=== PATIENT | female | born 1940 | race Caucasian/White ===

== ENCOUNTER 2017-02-10 13:14 | Observation (INO) ==
[2017-02-10 15:54] LABS: INR 1.1
[2017-02-10 15:57] LABS: Activated Partial Thrombo Time 27.4 Seconds (26.0-36.0)
[2017-02-10 15:57] LABS: Eosinophils # 0.2 K/mcL (0.0-0.6); Eosinophils % 2.5 %; Hematocrit 17.4 % (35.3-44.9); Immature Granulocytes % 0.4 % (0-4); Lymphocytes % 24.9 %; Mean Corpuscular Hemoglobin 17.4 pg (28.0-33.3); Mean Corpuscular Volume 64.4 fL (83.0-100.0); Mean Platelet Volume 9.4 fL (9.4-12.4); Monocytes # 0.8 K/mcL (0.0-1.3); Monocytes % 9.8 %; Neutrophils # 5.1 K/mcL (1.6-8.9); Platelet Count 367 K/mcL (140-400); Red Cell Distribution Width 19.4 % (11.5-14.5); Segmented Neutrophils % 62.4 %
--- NOTE | 2017-02-10 15:58 | Emergency Department Note ---
Disposition Clinical Impression: Anemia Qualifiers: Anemia type: unspecified type Qualified Code(s): D64.9 - Anemia, unspecified Disposition: Admitted As Inpatient Condition: Good Time of Disposition: 16:30 General Adult HPI - General Chief complaint: ED Extremity Injury, Lower Stated complaint: LEG PAIN/FATIGUE Time Seen by Provider: 02/10/17 15:18 Source: patient Mode of arrival: ambulatory Limitations: no limitations Nursing Notes Reviewed: Yes Vital Signs Reviewed: Yes - History of Present Illness HPI Narrative: Ms. Lindsey is a 76-year-old female that presents to the emergency department with concerns of shortness of breath. Breath has been ongoing for the past 3-4 months and progressively getting worse. She states that she has difficulty ambulating a long distance without becoming significantly short of breath. She states that when she walks from her bedroom to her kitchen she becomes short of breath. She states that her shortness of breath is 10/10. The only thing that makes this worse is walking. She says nothing seems to make it better. She states that at night she has to sleep somewhat propped up and on her side otherwise she become short of breath. Pain Scale: 0 - Related Data Allergies Allergy/AdvReac Type Severity Reaction Status Date / Time No Known Allergies Allergy Verified 02/10/17 13:33 All systems ED: reviewed and negative except as stated. Constitutional: Denies: fever, weakness ENT ED: Denies: throat pain Cardiovascular: Reports: chest pain, dyspnea on exertion, orthopnea. Denies: palpitations, syncope Respiratory: Reports: cough, dyspnea. Denies: wheezes, hemoptysis, stridor Past Medical History - Past Medical History Attestation: Yes The following information was validated with the patient. Source: patient, obtained from family Medical history: Reports: CVA, diabetes, hyperlipidemia, hypertension, myocardial infarction Psychiatric history: Reports: anxiety, depression VISITOR SERVICES SPECIALIST history: Reports: bilateral tubal ligation - Social History Smoking Status: Current every day smoker (Half pack per day) Smokeless Tobacco Status: No Alcohol use: Reports: occasionally Drug use: Reports: none Physical Exam - General Limitations: no limitations General appearance: alert, in no apparent distress - Head Head exam: atraumatic, normocephalic - Eye Eye exam: Present: PERRL, EOMI - Neck Neck exam: Present: trachea midline, other (Scar on anterior neck from previous operation.). Absent: thyromegaly - Chest Chest inspection: Present: normal inspection, symmetric chest wall rise - Respiratory Respiratory exam: Present: normal lung sounds bilaterally. Absent: respiratory distress, wheezes, stridor, accessory muscle use - Cardiovascular Cardiovascular exam: Present: regular rate, normal rhythm, systolic murmur, +S1 , +S2 - Abdominal Exam Abdominal exam: Present: soft, Non-Tender, normal bowel sounds. Absent: organomegaly - Rectal Exam Fur Stretcher present during exam: Yes Rectal exam: Present: normal inspection, normal rectal tone, heme (-) stool, other (Empty rectal vault heme negative) - Extremities Exam Extremities exam: Present: normal inspection. Absent: tenderness, pedal edema - Neurological Exam Neurological exam: Present: alert, oriented X3, normal gait - Psychiatric Psychiatric exam: Present: normal affect, normal mood - Skin Skin exam: Present: warm, dry, intact Course Vital Signs Temperature 98.2 F 02/10/17 13:33 Pulse Rate 84 02/10/17 13:33 Respiratory Rate 16 02/10/17 13:33 Blood Pressure 126/56 02/10/17 13:33 O2 Sat by Pulse Oximetry 97 02/10/17 13:33 Temperature 98.2 F 02/10/17 13:33 Pulse Rate 91 02/10/17 16:51 Respiratory Rate 18 02/10/17 17:15 Blood Pressure 132/54 02/10/17 17:15 O2 Sat by Pulse Oximetry 96 02/10/17 18:37 Oxygen Delivery Oxygen Delivery Room Air Medical Decision Making - [facility] Narrative Medical decision making narrative: 76-year-old female that came to the ED for shortness of breath that has progressively gotten worse over the past 3 months. Was found to have a hemoglobin of 4.7 and decided to transfuse her with 2 units of packed red blood cells. I spoke with the hospitalist and decided to admit the patient. The hospitalist requested that we order iron studies which was done. The low hemoglobin is consistent with the patient's fatigue and shortness of breath. The patient will be admitted and transfused. - Medical Records Medical records reviewed: Yes I reviewed the patient's medical records. - Lab Data Lab results reviewed: Yes I reviewed the patient's lab results. Result diagrams: 02/10/17 15:39 02/10/17 15:39 Lab Results 02/10/17 02/10/17 02/10/17 Range/Units 15:39 15:39 15:39 WBC 8.1 (4.3-11.1) K/mcL RBC 2.70 L (3.82-4.97) M/mcL Hgb 4.7 L* (11.5-15.4) g/dL Hct 17.4 L (35.3-44.9) % MCV 64.4 L (83.0-100.0) fL MCH 17.4 L (28.0-33.3) pg MCHC 27.0 L (31.6-35.5) g/dL RDW 19.4 H (11.5-14.5) % Plt Count 367 (140-400) K/mcL MPV 9.4 (9.4-12.4) fL Immature Gran % 0.4 (0-4) % Seg Neutrophils % 62.4 % Lymphocytes % 24.9 % Monocytes % 9.8 % Eosinophils % 2.5 % Basophils % 0.0 % Neutrophils # 5.1 (1.6-8.9) K/mcL Lymphocytes # 2.0 (0.6-4.6) K/mcL Monocytes # 0.8 (0.0-1.3) K/mcL Eosinophils # 0.2 (0.0-0.6) K/mcL Basophils # 0.0 (0.0-0.2) K/mcL Platelet Estimate Normal (Normal) Polychromasia 1+ A (Not Present) Hypochromasia Present A (Not Present) Poikilocytosis 1+ A (Not Present) Anisocytosis 3+ A (Not Present) Microcytosis Present A (Not Present) PT (9.4-12.1) Seconds INR APTT (26.0-36.0) Seconds Sodium 137 (136-145) mEq/L Potassium 4.4 (3.5-4.5) mEq/L Chloride 106 (98-109) mEq/L Carbon Dioxide 22 (19-29) mEq/L BUN 14 (7-20) mg/dL Creatinine 1.15 H (0.57-1.11) mg/dL Est GFR ( Amer) 56 L (> 60) Est GFR (Non-Af Amer) 46 L (> 60) BUN/Creatinine Ratio 12 (6-26) Glucose 206 H (70-99) mg/dL Calculated Osmolality 290 (280-300) Calcium 9.2 (8.6-10.8) mg/dL Iron 11 L (50-170) mcg/dL % Saturation 2 L (15-50) % Transferrin 390 H (180-382) mg/dL Total Bilirubin 0.2 (0.2-1.2) mg/dL Direct Bilirubin (0.0-0.5) mg/dL Indirect Bilirubin (0.0-1.2) mg/dL AST 16 (5-34) Units/L ALT 10 (0-55) Units/L Alkaline Phosphatase 62 (38-126) Units/L Troponin I 0.01 (0-0.03) ng/mL B-Natriuretic Peptide (0-100) pg/mL Serum Total Protein 6.7 (6.0-8.3) g/dL Albumin 3.7 (3.5-5.0) g/dL Globulin 3.0 (2.4-3.5) g/dL Albumin/Globulin Ratio 1.2 (1.1-2.2) Amylase (25-125) Units/L Lipase (8-78) Units/L TSH 0.866 (0.350-4.840) mcIU/mL Blood Type Antibody Screen Crossmatch 02/10/17 02/10/17 02/10/17 Range/Units 15:39 15:39 15:40 WBC (4.3-11.1) K/mcL RBC (3.82-4.97) M/mcL Hgb (11.5-15.4) g/dL Hct (35.3-44.9) % MCV (83.0-100.0) fL MCH (28.0-33.3) pg MCHC (31.6-35.5) g/dL RDW (11.5-14.5) % Plt Count (140-400) K/mcL MPV (9.4-12.4) fL Immature Gran % (0-4) % Seg Neutrophils % % Lymphocytes % % Monocytes % % Eosinophils % % Basophils % % Neutrophils # (1.6-8.9) K/mcL Lymphocytes # (0.6-4.6) K/mcL Monocytes # (0.0-1.3) K/mcL Eosinophils # (0.0-0.6) K/mcL Basophils # (0.0-0.2) K/mcL Platelet Estimate (Normal) Polychromasia (Not Present) Hypochromasia (Not Present) Poikilocytosis (Not Present) Anisocytosis (Not Present) Microcytosis (Not Present) PT 12.0 (9.4-12.1) Seconds INR 1.1 APTT 27.4 (26.0-36.0) Seconds Sodium (136-145) mEq/L Potassium (3.5-4.5) mEq/L Chloride (98-109) mEq/L Carbon Dioxide (19-29) mEq/L BUN (7-20) mg/dL Creatinine (0.57-1.11) mg/dL Est GFR ( Amer) (> 60) Est GFR (Non-Af Amer) (> 60) BUN/Creatinine Ratio (6-26) Glucose (70-99) mg/dL Calculated Osmolality (280-300) Calcium (8.6-10.8) mg/dL Iron (50-170) mcg/dL % Saturation (15-50) % Transferrin (180-382) mg/dL Total Bilirubin 0.2 (0.2-1.2) mg/dL Direct Bilirubin 0.1 (0.0-0.5) mg/dL Indirect Bilirubin 0.1 (0.0-1.2) mg/dL AST 16 (5-34) Units/L ALT 11 (0-55) Units/L Alkaline Phosphatase 60 (38-126) Units/L Troponin I (0-0.03) ng/mL B-Natriuretic Peptide 169 H (0-100) pg/mL Serum Total Protein 6.6 (6.0-8.3) g/dL Albumin 3.7 (3.5-5.0) g/dL Globulin 2.9 (2.4-3.5) g/dL Albumin/Globulin Ratio 1.3 (1.1-2.2) Amylase 65 (25-125) Units/L Lipase 66 (8-78) Units/L TSH (0.350-4.840) mcIU/mL Blood Type Antibody Screen Crossmatch 02/10/17 Range/Units 16:33 WBC (4.3-11.1) K/mcL RBC (3.82-4.97) M/mcL Hgb (11.5-15.4) g/dL Hct (35.3-44.9) % MCV (83.0-100.0) fL MCH (28.0-33.3) pg MCHC (31.6-35.5) g/dL RDW (11.5-14.5) % Plt Count (140-400) K/mcL MPV (9.4-12.4) fL Immature Gran % (0-4) % Seg Neutrophils % % Lymphocytes % % Monocytes % % Eosinophils % % Basophils % % Neutrophils # (1.6-8.9) K/mcL Lymphocytes # (0.6-4.6) K/mcL Monocytes # (0.0-1.3) K/mcL Eosinophils # (0.0-0.6) K/mcL Basophils # (0.0-0.2) K/mcL Platelet Estimate (Normal) Polychromasia (Not Present) Hypochromasia (Not Present) Poikilocytosis (Not Present) Anisocytosis (Not Present) Microcytosis (Not Present) PT (9.4-12.1) Seconds INR APTT (26.0-36.0) Seconds Sodium (136-145) mEq/L Potassium (3.5-4.5) mEq/L Chloride (98-109) mEq/L Carbon Dioxide (19-29) mEq/L BUN (7-20) mg/dL Creatinine (0.57-1.11) mg/dL Est GFR ( Amer) (> 60) Est GFR (Non-Af Amer) (> 60) BUN/Creatinine Ratio (6-26) Glucose (70-99) mg/dL Calculated Osmolality (280-300) Calcium (8.6-10.8) mg/dL Iron (50-170) mcg/dL % Saturation (15-50) % Transferrin (180-382) mg/dL Total Bilirubin (0.2-1.2) mg/dL Direct Bilirubin (0.0-0.5) mg/dL Indirect Bilirubin (0.0-1.2) mg/dL AST (5-34) Units/L ALT (0-55) Units/L Alkaline Phosphatase (38-126) Units/L Troponin I (0-0.03) ng/mL B-Natriuretic Peptide (0-100) pg/mL Serum Total Protein (6.0-8.3) g/dL Albumin (3.5-5.0) g/dL Globulin (2.4-3.5) g/dL Albumin/Globulin Ratio (1.1-2.2) Amylase (25-125) Units/L Lipase (8-78) Units/L TSH (0.350-4.840) mcIU/mL Blood Type O NEGATIVE Antibody Screen NEGATIVE Crossmatch See Detail - Radiology Data Radiology results reviewed: Yes I reviewed the patient's radiology results. - EKG Data EKG #1 EKG results narrative: EKG showed normal sinus rhythm at a rate of 84 bpm NE interval is 176 QRS duration 86 QTc is 381. Normal axis. No ST segment changes. No acute findings Attestation Statement - Attestation Attestation: I, Luis Carson, examined this patient and my medical decision-making was reviewed with the TECHNICAL REPORT WRITER/PA/Advanced Practice Nurse/Resident Physician. I agree with the documented findings, disposition and treatment plan as described except to the extent set forth below. 76-year-old female presents with concerns of increasing shortness of breath. Patient states that this has been worsening over the past 2-3 months. Patient states she becomes significantly dyspneic with minimal exertion going from room to room in the house. Reports history of chest pain and shortness of breath intermittently over the past few months, last time she had these symptoms was about 3 days prior to arrival. On initial evaluation the patient is awake, alert, answering questions appropriately. She is up moving around the room without difficulty. Initial laboratory testing revealed hemoglobin of 4.7. Resident performed a rectal exam which did not reveal stool in the rectal vault however the little that was obtained was guaiac negative. Patient states she had one episode of dark brown loose stool this morning. She has had these intermittently over the past 2-3 months. Patient vital signs are stable in the emergency department. The resident spoke with the endoscopist, Dr. Haq who felt like the patient was capable of being managed at this hospital. Patient will be admitted to the hospitalist for further care and evaluation.
[2017-02-10 16:10] LABS: Albumin 3.7 g/dL (3.5-5.0); Albumin/Globulin Ratio 1.2 (1.1-2.2); Albumin/Globulin Ratio 1.3 (1.1-2.2); Bilirubin,Direct 0.1 mg/dL (0.0-0.5); Bilirubin,Indirect 0.1 mg/dL (0.0-1.2); Bilirubin,Total 0.2 mg/dL (0.2-1.2); Calcium 9.2 mg/dL (8.6-10.8); Globulin 2.9 g/dL (2.4-3.5); Potassium 4.4 mEq/L (3.5-4.5); Total Protein 6.6 g/dL (6.0-8.3); Total Protein 6.7 g/dL (6.0-8.3)
[2017-02-10 16:14] LABS: Hemoglobin 4.7 g/dL (11.5-15.4)
[2017-02-10 16:19] LABS: Hypochromasia Present (Not Present); Microcytosis Present (Not Present)
[2017-02-10 16:20] LABS: Anisocytosis 3+ (Not Present); Poikilocytosis 1+ (Not Present)
[2017-02-10 16:21] LABS: Platelet Estimate Normal (Normal); Polychromasia 1+ (Not Present)
[2017-02-10 16:33] LABS: Thyroid Stimulating Hormone 0.866 mcIU/mL (0.350-4.840)
[2017-02-10] MEDS ORDERED: Naloxone 0.4 MG/ML INJ IVP PRN (18:01)
--- NOTE | 2017-02-10 18:01 | Emergency Department Note ---
Disposition Clinical Impression: Anemia Qualifiers: Anemia type: unspecified type Qualified Code(s): D64.9 - Anemia, unspecified Disposition: Admitted As Inpatient Condition: Good Time of Disposition: 18:01 General Adult HPI - General Chief complaint: ED Extremity Injury, Lower Stated complaint: LEG PAIN/FATIGUE Time Seen by Provider: 02/10/17 15:18 Source: patient Mode of arrival: ambulatory Limitations: no limitations - History of Present Illness Pain Scale: 0 - Related Data Allergies Allergy/AdvReac Type Severity Reaction Status Date / Time No Known Allergies Allergy Verified 02/10/17 13:33 Constitutional: Denies: fever, weakness ENT ED: Denies: throat pain Cardiovascular: Reports: chest pain, dyspnea on exertion, orthopnea. Denies: palpitations, syncope Respiratory: Reports: cough, dyspnea. Denies: wheezes, hemoptysis, stridor Past Medical History - Past Medical History Medical history: Reports: CVA, diabetes, hyperlipidemia, hypertension, myocardial infarction Psychiatric history: Reports: anxiety, depression QA TECH history: Reports: bilateral tubal ligation - Social History Smoking Status: Current every day smoker (Half pack per day) Smokeless Tobacco Status: No Alcohol use: Reports: occasionally Drug use: Reports: none Physical Exam - General Limitations: no limitations General appearance: alert, in no apparent distress Course - Reevaluation(s) Reevaluation #1: I spoke with the admitting hospitalist. They were concerned if the patient needed endoscopy or colonoscopy that we do not have GI on-call for the next 5 days. Paged the on-call surgeon, Dr. Ahmadi. He agreed that the patient is hemodynamically stable currently. Recommended continuing with planned transfusion. He will scope the patient as an outpatient or he was agreeable to coming in to scope her emergently if needed. Patient is certainly not actively bleeding at this point. I do not anticipate her needing an emergent scope. She has had 2 episodes of loose dark stools in the last 24 hours. She did not describe anything that was black, tarry, or oily. Rectal exam showed no rectal stool. Hemoccult was negative. We will admit her for transfusion and further management as needed. Time: 17:59 Vital Signs Temperature 98.2 F 02/10/17 13:33 Pulse Rate 84 02/10/17 13:33 Respiratory Rate 16 02/10/17 13:33 Blood Pressure 126/56 02/10/17 13:33 O2 Sat by Pulse Oximetry 97 02/10/17 13:33 Temperature 98.4 F 02/10/17 18:50 Pulse Rate 86 02/10/17 18:50 Respiratory Rate 14 02/10/17 18:50 Blood Pressure 155/63 02/10/17 18:50 O2 Sat by Pulse Oximetry 94 02/10/17 18:50 Oxygen Delivery Oxygen Delivery Room Air Medical Decision Making - Lab Data Result diagrams: 02/10/17 15:39 02/10/17 15:39 Lab Results 02/10/17 02/10/17 02/10/17 Range/Units 15:39 15:39 15:39 WBC 8.1 (4.3-11.1) K/mcL RBC 2.70 L (3.82-4.97) M/mcL Hgb 4.7 L* (11.5-15.4) g/dL Hct 17.4 L (35.3-44.9) % MCV 64.4 L (83.0-100.0) fL MCH 17.4 L (28.0-33.3) pg MCHC 27.0 L (31.6-35.5) g/dL RDW 19.4 H (11.5-14.5) % Plt Count 367 (140-400) K/mcL MPV 9.4 (9.4-12.4) fL Immature Gran % 0.4 (0-4) % Seg Neutrophils % 62.4 % Lymphocytes % 24.9 % Monocytes % 9.8 % Eosinophils % 2.5 % Basophils % 0.0 % Neutrophils # 5.1 (1.6-8.9) K/mcL Lymphocytes # 2.0 (0.6-4.6) K/mcL Monocytes # 0.8 (0.0-1.3) K/mcL Eosinophils # 0.2 (0.0-0.6) K/mcL Basophils # 0.0 (0.0-0.2) K/mcL Platelet Estimate Normal (Normal) Polychromasia 1+ A (Not Present) Hypochromasia Present A (Not Present) Poikilocytosis 1+ A (Not Present) Anisocytosis 3+ A (Not Present) Microcytosis Present A (Not Present) PT (9.4-12.1) Seconds INR APTT (26.0-36.0) Seconds Sodium 137 (136-145) mEq/L Potassium 4.4 (3.5-4.5) mEq/L Chloride 106 (98-109) mEq/L Carbon Dioxide 22 (19-29) mEq/L BUN 14 (7-20) mg/dL Creatinine 1.15 H (0.57-1.11) mg/dL Est GFR ( Amer) 56 L (> 60) Est GFR (Non-Af Amer) 46 L (> 60) BUN/Creatinine Ratio 12 (6-26) Glucose 206 H (70-99) mg/dL Calculated Osmolality 290 (280-300) Calcium 9.2 (8.6-10.8) mg/dL Iron 11 L (50-170) mcg/dL % Saturation 2 L (15-50) % Transferrin 390 H (180-382) mg/dL Total Bilirubin 0.2 (0.2-1.2) mg/dL Direct Bilirubin (0.0-0.5) mg/dL Indirect Bilirubin (0.0-1.2) mg/dL AST 16 (5-34) Units/L ALT 10 (0-55) Units/L Alkaline Phosphatase 62 (38-126) Units/L Troponin I 0.01 (0-0.03) ng/mL B-Natriuretic Peptide (0-100) pg/mL Serum Total Protein 6.7 (6.0-8.3) g/dL Albumin 3.7 (3.5-5.0) g/dL Globulin 3.0 (2.4-3.5) g/dL Albumin/Globulin Ratio 1.2 (1.1-2.2) Amylase (25-125) Units/L Lipase (8-78) Units/L TSH 0.866 (0.350-4.840) mcIU/mL Blood Type Antibody Screen Crossmatch 02/10/17 02/10/17 02/10/17 Range/Units 15:39 15:39 15:40 WBC (4.3-11.1) K/mcL RBC (3.82-4.97) M/mcL Hgb (11.5-15.4) g/dL Hct (35.3-44.9) % MCV (83.0-100.0) fL MCH (28.0-33.3) pg MCHC (31.6-35.5) g/dL RDW (11.5-14.5) % Plt Count (140-400) K/mcL MPV (9.4-12.4) fL Immature Gran % (0-4) % Seg Neutrophils % % Lymphocytes % % Monocytes % % Eosinophils % % Basophils % % Neutrophils # (1.6-8.9) K/mcL Lymphocytes # (0.6-4.6) K/mcL Monocytes # (0.0-1.3) K/mcL Eosinophils # (0.0-0.6) K/mcL Basophils # (0.0-0.2) K/mcL Platelet Estimate (Normal) Polychromasia (Not Present) Hypochromasia (Not Present) Poikilocytosis (Not Present) Anisocytosis (Not Present) Microcytosis (Not Present) PT 12.0 (9.4-12.1) Seconds INR 1.1 APTT 27.4 (26.0-36.0) Seconds Sodium (136-145) mEq/L Potassium (3.5-4.5) mEq/L Chloride (98-109) mEq/L Carbon Dioxide (19-29) mEq/L BUN (7-20) mg/dL Creatinine (0.57-1.11) mg/dL Est GFR ( Amer) (> 60) Est GFR (Non-Af Amer) (> 60) BUN/Creatinine Ratio (6-26) Glucose (70-99) mg/dL Calculated Osmolality (280-300) Calcium (8.6-10.8) mg/dL Iron (50-170) mcg/dL % Saturation (15-50) % Transferrin (180-382) mg/dL Total Bilirubin 0.2 (0.2-1.2) mg/dL Direct Bilirubin 0.1 (0.0-0.5) mg/dL Indirect Bilirubin 0.1 (0.0-1.2) mg/dL AST 16 (5-34) Units/L ALT 11 (0-55) Units/L Alkaline Phosphatase 60 (38-126) Units/L Troponin I (0-0.03) ng/mL B-Natriuretic Peptide 169 H (0-100) pg/mL Serum Total Protein 6.6 (6.0-8.3) g/dL Albumin 3.7 (3.5-5.0) g/dL Globulin 2.9 (2.4-3.5) g/dL Albumin/Globulin Ratio 1.3 (1.1-2.2) Amylase 65 (25-125) Units/L Lipase 66 (8-78) Units/L TSH (0.350-4.840) mcIU/mL Blood Type Antibody Screen Crossmatch 02/10/17 Range/Units 16:33 WBC (4.3-11.1) K/mcL RBC (3.82-4.97) M/mcL Hgb (11.5-15.4) g/dL Hct (35.3-44.9) % MCV (83.0-100.0) fL MCH (28.0-33.3) pg MCHC (31.6-35.5) g/dL RDW (11.5-14.5) % Plt Count (140-400) K/mcL MPV (9.4-12.4) fL Immature Gran % (0-4) % Seg Neutrophils % % Lymphocytes % % Monocytes % % Eosinophils % % Basophils % % Neutrophils # (1.6-8.9) K/mcL Lymphocytes # (0.6-4.6) K/mcL Monocytes # (0.0-1.3) K/mcL Eosinophils # (0.0-0.6) K/mcL Basophils # (0.0-0.2) K/mcL Platelet Estimate (Normal) Polychromasia (Not Present) Hypochromasia (Not Present) Poikilocytosis (Not Present) Anisocytosis (Not Present) Microcytosis (Not Present) PT (9.4-12.1) Seconds INR APTT (26.0-36.0) Seconds Sodium (136-145) mEq/L Potassium (3.5-4.5) mEq/L Chloride (98-109) mEq/L Carbon Dioxide (19-29) mEq/L BUN (7-20) mg/dL Creatinine (0.57-1.11) mg/dL Est GFR ( Amer) (> 60) Est GFR (Non-Af Amer) (> 60) BUN/Creatinine Ratio (6-26) Glucose (70-99) mg/dL Calculated Osmolality (280-300) Calcium (8.6-10.8) mg/dL Iron (50-170) mcg/dL % Saturation (15-50) % Transferrin (180-382) mg/dL Total Bilirubin (0.2-1.2) mg/dL Direct Bilirubin (0.0-0.5) mg/dL Indirect Bilirubin (0.0-1.2) mg/dL AST (5-34) Units/L ALT (0-55) Units/L Alkaline Phosphatase (38-126) Units/L Troponin I (0-0.03) ng/mL B-Natriuretic Peptide (0-100) pg/mL Serum Total Protein (6.0-8.3) g/dL Albumin (3.5-5.0) g/dL Globulin (2.4-3.5) g/dL Albumin/Globulin Ratio (1.1-2.2) Amylase (25-125) Units/L Lipase (8-78) Units/L TSH (0.350-4.840) mcIU/mL Blood Type O NEGATIVE Antibody Screen NEGATIVE Crossmatch See Detail Attestation Statement - Attestation Attestation: I, Luis Carson, examined this patient and my medical decision-making was reviewed with the ELEVATOR ERECTOR/PA/Advanced Practice Nurse/Resident Physician. I agree with the documented findings, disposition and treatment plan as described except to the extent set forth below. Refer to original note for detail.
[2017-02-10] MEDS ORDERED: 0.9 % Sodium Chloride 250 ML ONE ×2 (18:27→22:26)
--- NOTE | 2017-02-10 18:28 | Internal Med History&Physical ---
<Feliciano,Carmita J - Last Filed: 02/10/17 19:21> Date of Encounter: 02/10/17 Time of Encounter: 18:23 Assessment and Plan (1) Anemia Current visit: Yes Status: Acute Reports to loose stools with melena one day prior to admission, no hematochezia , no obvious bleeding. Hemodynamically stable, no hypotension or tachycardia. Granddaughter at bedside and reports noting bright red blood in toilet after patient voids. One unit PRBC ordered in the ED, we will order a total of [address] JASON Jarrell on this week however discussed case with the ED physician who spoke with Dr. Haq and Dr. Ahmadi agreed to scope patient if needed after transfusion otherwise can follow up outpatient. Clear liquid diet , IV fluids, IV PPI, monitor H&H Qualifiers: Anemia type: unspecified type Qualified Code(s): D64.9 - Anemia, unspecified (2) Shortness of breath Current visit: Yes Status: Acute Chronic and progressive per patient. Current smoker and likely has underlying COPD. CXR nonacute but did show small lingula of left lung. No evidence of COPD exacerbation on exam. Continue supplemental O2 PRN. Echo, chest CT pending. Cycle troponin. Add nebs (3) DVT prophylaxis Current visit: Yes Status: Acute SCD Internal Medicine - H&P: HPI Chief complaint: shortness of breath Admitted From: Home Plans for Post Hospital Care: Home History of present illness: Ms. Lindsey is a 76 year old female with unknown past medical history who presented to [facility] on 02/10/2017 with complaints of shortness of breath. She was found to have a hemoglobin of 4.7 and was admitted for blood transfusion. Information obtained from chart review and patient report. Patient reports not feeling well for a couple months now. Says she has been trying to get into her PCP but her appointments keep being rescheduled. Unclear exactly what happened or brought her to the ER today she does report being shortness of breath and not feeling well. She she thinks she may have had a heart attack 2 months ago she had sharp chest pain. No chest pain on my exam, does have some shortness of breath worse with exertion. Better with rest. Denies bright red blood per rectum. She does report 2 large loose stools over the last 24 hours dark black in color. Granddaughter at bedside and reports seeing bright red blood in the toilet after patient uses the bathroom. Past Med Surg Social Fam HX - Past Medical History Medical history: CVA, diabetes, hyperlipidemia, hypertension, myocardial infarction Psychiatric history: anxiety, depression - Past Surgical History Surgical History: non-contributory - Social History Smoking Status: Current every day smoker (Half pack per day) Smokeless Tobacco Status: No Alcohol use: occasionally Drug use: none - Additional Family History Additional family history: reviewed and noncontributory Internal Medicine - H&P: Meds Allergies No Known Allergies Allergy (Verified 02/10/17 13:33) All Systems PM: A 10-system review of systems was performed and is negative for pertinent findings except as documented above in the HPI. - Constitutional Constitutional: weakness, no chills, no fever(s), no night sweats - EENT Eyes: no change in vision, no discharge, no pain, no photophobia Ears: no ear discharge, no ear pain, no tinnitus Nose, mouth and throat: no dysphagia, no nasal discharge, no neck pain, no sore throat - Cardiovascular Cardiovascular ROS IM: no chest pain, no diaphoresis, no dyspnea, no lightheadedness, no palpitations, no syncope - Respiratory Respiratory: dyspnea on exertion, no cough, no dyspnea, no wheezing, no excessive phlegm production - Gastrointestinal Gastrointestinal: loose stools, melena, no abdominal pain, no diarrhea, no hematemesis, no hematochezia, no nausea, no vomiting - Genitourinary Genitourinary: no change in urinary stream, no dysuria, no flank pain, no hematuria - Musculoskeletal Musculoskeletal ROS IM: no numbness, no tingling - Integumentary Integumentary IM: no rash, no unusual bruising - Neurological Neurological ROS: no confusion, no convulsions, no focal weakness, no numbness, no tingling, no tremor(s) - Hematologic/Lymphatic Hematologic/Lymphatic: no easy bruising - Constitutional Vitals: Temp Pulse Resp BP Pulse Ox 98.2 F 91 18 132/54 99 02/10/17 13:33 02/10/17 16:51 02/10/17 17:15 02/10/17 17:15 02/10/17 16:51 General appearance: Present: A&O X 3 - Head Head exam: Present: atraumatic, normocephalic - Eye Eye exam: Present: PERRL, conjuntiva pink, sclera anicteric Pupils: Present: PERRL - Neck Neck exam general surgery: Present: supple, trachea midline. Absent: lymphadenopathy - Respiratory Respiratory exam: Present: CTAB. Absent: accessory muscle use, rales, rhonchi, wheezes - Cardiovascular Cardiovascular exam: Present: RRR, +S1, +S2. Absent: diastolic murmur, gallop, rubs, systolic murmur - GI/Abdominal GI/Abdominal exam: Present: normal bowel sounds, soft, no peritoneal signs. Absent: distended, tenderness - Extremities Exam Extremities exam: Present: warm, radial pulses palpable and symetrical. Absent : calf tenderness, cyanotic, pedal edema - Neurological Exam Neurological exam: Present: CN II-XII intact, oriented X3, no focal deficits. Absent: pronater drift, facial droop, speech deficit - Skin Skin exam: Present: dry, intact Internal Med - H&P Results - Labs CBC & Chem 7: 02/10/17 15:39 02/10/17 15:39 <Fausto Juarez - Last Filed: 02/11/17 07:21> Date of Encounter: 02/11/17 Internal Medicine - H&P: HPI History of present illness: Ms. Lindsey is a 76 year old female All Systems PM: A 10-system review of systems was performed and is negative for pertinent findings except as documented above in the HPI. - Constitutional Vitals: Temp Pulse Resp BP Pulse Ox 98.4 F 82 20 159/71 95 02/11/17 06:13 02/11/17 06:13 02/11/17 06:13 02/11/17 06:13 02/11/17 06:13 Internal Med - H&P Results - Labs CBC & Chem 7: 02/11/17 06:01 02/11/17 06:01 Labs: Short CBC 02/11/17 Range/Units 06:01 WBC 5.8 (4.3-11.1) K/mcL Hgb 7.5 L D (11.5-15.4) g/dL Hct 25.1 L (35.3-44.9) % Plt Count 251 (140-400) K/mcL BMP 02/11/17 06:01 Sodium 137 Potassium 3.9 Chloride 112 H Carbon Dioxide 19 BUN 10 Creatinine 0.80 Glucose 61 L Calcium 8.1 L Cardiac Enzymes 02/11/17 02/11/17 Range/Units 01:17 06:01 Troponin I 0.01 0.00 (0-0.03) ng/mL Liver Function 02/11/17 Range/Units 06:01 Total Bilirubin 0.9 D (0.2-1.2) mg/dL AST 18 (5-34) Units/L ALT 11 (0-55) Units/L Alkaline Phosphatase 45 (38-126) Units/L Albumin 3.0 L (3.5-5.0) g/dL - Attending Attestation I examined this patient and my medical decision-making was reviewed with the Resident Physician. I agree with the documented findings, disposition and treatment plan as described
[2017-02-10] MEDS: Nicotine 14 MG PATCH.TD24 TD SCH (20:52)
[2017-02-10] MEDS: Pantoprazole 40 MG VIAL IVP SCH (20:53)
[2017-02-11] MEDS: 0.9 % Sodium Chloride 1,000 ML IVC SCH ×3 (00:14→23:52)
[2017-02-11] MEDS ORDERED: 0.9 % Sodium Chloride 250 ML ONE (01:51)
[2017-02-11 06:42] LABS: Basophils # 0.1 K/mcL (0.0-0.2); Basophils % 0.9 %; Eosinophils # 0.2 K/mcL (0.0-0.6); Eosinophils % 2.8 %; Hematocrit 25.1 % (35.3-44.9); Immature Granulocytes % 1.6 % (0-4); Lymphocytes # 1.5 K/mcL (0.6-4.6); Mean Corpuscular HGB Conc 29.9 g/dL (31.6-35.5); Mean Corpuscular Hemoglobin 22.1 pg (28.0-33.3); Mean Platelet Volume 8.6 fL (9.4-12.4); Monocytes # 0.7 K/mcL (0.0-1.3); Monocytes % 12.4 %; Neutrophils # 3.3 K/mcL (1.6-8.9); Nucleated Red Blood Cells 0.5 /100 WBC (0); Platelet Count 251 K/mcL (140-400); Red Cell Distribution Width 26.3 % (11.5-14.5); Segmented Neutrophils % 56.3 %
[2017-02-11 06:52] LABS: Hemoglobin 7.5 g/dL (11.5-15.4); Mean Corpuscular Volume 73.8 fL (83.0-100.0)
[2017-02-11 06:56] LABS: % Iron Saturation 13 % (15-50); Alanine Aminotransferase 11 Units/L (0-55); Albumin/Globulin Ratio 1.3 (1.1-2.2); Alkaline Phosphatase 45 Units/L (38-126); Aspartate Amino Transferase 18 Units/L (5-34); BUN/Creatinine Ratio 13 (6-26); Blood Urea Nitrogen 10 mg/dL (7-20); Calcium 8.1 mg/dL (8.6-10.8); Carbon Dioxide 19 mEq/L (19-29); Chloride 112 mEq/L (98-109); Globulin 2.3 g/dL (2.4-3.5); Glucose 61 mg/dL (70-99); Iron 57 mcg/dL (50-170); Lactate Dehydrogenase 179 Units/L (159-327); Osmolality,Calculated 281 (280-300); Potassium 3.9 mEq/L (3.5-4.5); Sodium 137 mEq/L (136-145); Transferrin 313 mg/dL (180-382); eGFR For African Americans > 60 (> 60); eGFR For Non-African Americans > 60 (> 60)
[2017-02-11 07:00] LABS: Bilirubin,Total 0.9 mg/dL (0.2-1.2); Total Protein 5.3 g/dL (6.0-8.3)
[2017-02-11 07:30] LABS: Folate 15.2 ng/mL (7.0-31.4)
[2017-02-11 07:50] LABS: Anisocytosis 2+ (Not Present); Hypochromasia Present (Not Present); Microcytosis Present (Not Present); Platelet Estimate Normal (Normal)
[2017-02-11] MEDS: Pantoprazole 40 MG VIAL IVP SCH (08:27)
[2017-02-11] MEDS: Nicotine 14 MG PATCH.TD24 TD SCH (08:28)
--- NOTE | 2017-02-11 10:47 | Internal Med Progress Note ---
<Boris Ramirez - Last Filed: 02/11/17 10:55> Date of Encounter: 02/11/17 Time of Encounter: 08:30 - Assessment and plan (1) DVT prophylaxis Current Visit: Yes Status: Acute (2) Shortness of breath Current Visit: Yes Status: Acute Assessment and plan: Checks x-ray revealed no acute changes. Patient still has a mild, nonproductive cough and expiratory wheezes on physical exam. Vital signs are currently stable. Continue to monitor. Chest CT pending. (3) Anemia Current Visit: Yes Status: Acute Assessment and plan: Patient reports having dark colored stools for the last month. She describes her stools as dark or black in color. Has attempted to see primary care physician, but either gets cancelled or is unable to obtain an appointment. Patient has received a total of 3 units of packed red blood cells. Vital signs are currently stable. Hemoglobin has increased from 4.7 on admission to 7.5. Granddaughter at bedside reports seeing bright red blood in the toilet after the patient uses the bathroom. We will contact Dr. Puga for an EGD to determine source of bleeding. Qualifiers: Anemia type: iron deficiency Iron deficiency anemia type: unspecified iron deficiency Qualified Code(s): D50.9 - Iron deficiency anemia, unspecified - Time Spent With Patient SCD. - Subjective Interval history: Patient was seen and examined at bedside this morning. Patient states that her shortness of breath has slightly improved since admission. She admits that she has a slight cough, which is nonproductive. Her main complaint this morning is pain and weakness in her legs. She says that this pain has been going on for the last month, and impairs her ability to walk long distances. Patient also states that her stools have been dark for the last month or so. Patient also states that she has been having intermittent chest pains this morning in the lower sternal area. She currently denies any nausea, vomiting, palpitations, or respiratory distress. - Constitutional Vitals: Temp Pulse Resp BP Pulse Ox 97.7 F 79 18 177/77 96 02/11/17 08:18 02/11/17 08:18 02/11/17 08:18 02/11/17 08:18 02/11/17 08:28 General appearance: Present: A&O X 3, no acute distress, answers questions appropriately - Respiratory Respiratory exam: Present: wheezes (Expiratory wheezes present.) - Expanded Respiratory Exam Location: wheezes: Left, Right, Upper, Lower (Expiratory wheezes present bilaterally.) - Cardiovascular Cardiovascular exam: Present: RRR, +S1, +S2. Absent: diastolic murmur, gallop, rubs, systolic murmur Internal Medicine: Result - Labs CBC & Chem 7: 02/11/17 06:01 02/11/17 06:01 Labs: Short CBC 02/11/17 Range/Units 06:01 WBC 5.8 (4.3-11.1) K/mcL Hgb 7.5 L D (11.5-15.4) g/dL Hct 25.1 L (35.3-44.9) % Plt Count 251 (140-400) K/mcL Neutrophils # 3.3 (1.6-8.9) K/mcL BMP 02/11/17 06:01 Sodium 137 Potassium 3.9 Chloride 112 H Carbon Dioxide 19 BUN 10 Creatinine 0.80 Glucose 61 L Calcium 8.1 L Cardiac Enzymes 02/11/17 02/11/17 Range/Units 01:17 06:01 Troponin I 0.01 0.00 (0-0.03) ng/mL Liver Function 02/11/17 Range/Units 06:01 Total Bilirubin 0.9 D (0.2-1.2) mg/dL AST 18 (5-34) Units/L ALT 11 (0-55) Units/L Alkaline Phosphatase 45 (38-126) Units/L Albumin 3.0 L (3.5-5.0) g/dL - ABG Interpretation ABG results: PT/INR, D-dimer PT 12.0 Seconds (9.4-12.1) 02/10/17 15:40 Consult Discharge Plan - Plan Referrals: Anneliese Melchor, [facility] [Primary Care Provider] - 02/17/17 1:15 pm <Omer Daly - Last Filed: 02/11/17 18:06> Date of Encounter: 02/11/17 - Assessment and plan (1) Anemia Current Visit: Yes Status: Acute Qualifiers: Anemia type: iron deficiency Iron deficiency anemia type: chronic blood loss Qualified Code(s): D50.0 - Iron deficiency anemia secondary to blood loss (chronic) (2) Acute upper gastrointestinal hemorrhage Current Visit: Yes Status: Suspected Assessment and plan: Surgery eval today and scope on Wednesday. (3) Shortness of breath Current Visit: Yes Status: Acute (4) Hypertension Current Visit: Yes Status: Chronic Qualifiers: Hypertension type: essential hypertension Qualified Code(s): I10 - Essential (primary) hypertension (5) Tobacco abuse Current Visit: Yes Status: Acute Assessment and plan: Cessation counselling. (6) Infestation by bed bug Current Visit: Yes Status: Acute Assessment and plan: Bed bugs - Constitutional Vitals: Temp Pulse Resp BP Pulse Ox 98.4 F 91 20 162/83 93 02/11/17 16:36 02/11/17 16:36 02/11/17 16:36 02/11/17 16:36 02/11/17 16:36 Internal Medicine: Result - Labs CBC & Chem 7: 02/11/17 06:01 02/11/17 06:01 Labs: Short CBC 02/11/17 Range/Units 06:01 WBC 5.8 (4.3-11.1) K/mcL Hgb 7.5 L D (11.5-15.4) g/dL Hct 25.1 L (35.3-44.9) % Plt Count 251 (140-400) K/mcL Neutrophils # 3.3 (1.6-8.9) K/mcL BMP 02/11/17 06:01 Sodium 137 Potassium 3.9 Chloride 112 H Carbon Dioxide 19 BUN 10 Creatinine 0.80 Glucose 61 L Calcium 8.1 L Cardiac Enzymes 02/11/17 02/11/17 02/11/17 Range/Units 01:17 06:01 12:19 Troponin I 0.01 0.00 0.00 (0-0.03) ng/mL Liver Function 02/11/17 Range/Units 06:01 Total Bilirubin 0.9 D (0.2-1.2) mg/dL AST 18 (5-34) Units/L ALT 11 (0-55) Units/L Alkaline Phosphatase 45 (38-126) Units/L Albumin 3.0 L (3.5-5.0) g/dL - ABG Interpretation ABG results: PT/INR, D-dimer PT 12.0 Seconds (9.4-12.1) 02/10/17 15:40 - Attending Attestation I examined this patient and my medical decision-making was reviewed with the Resident Physician on 02/11/17. I agree with the documented findings, disposition and treatment plan as described except to the extent set forth below. Ms. Lindsey is currently admitted for acute GI bleed and anemia of acute blood loss with dyspnea and CP. She is high risk due to potential for worsening bleeding status. Ms. Lindsey has no complaints. She was smoking in her room last night. Has bed bugs. No fever or chills. Exam Alert. Comfortable Heart reg No wheeze I/P 1. Anemia 2. GI bleed Further diagnoses and plan as above.
--- NOTE | 2017-02-11 11:52 | Electrocardiograph Report ---
[address] [address] Test Date: 2017-02-10 Pat Name: Lacy Lindsey Department: 102 Room: 2A38 Gender: F [employer]visor [employer]: Am : 1940 Requested By: Saul Larios Order Number: [id number] Reading MD: Edouard Borges MD Measurements Intervals [place] Rate: 84 P: 58 KS: 176 QRS: 43 QRSD: 86 T: 51 QT: 340 QTc: 381 Interpretive Statements SINUS RHYTHM Electronically Signed On 02-11-2017 11:50:49 EDT by Edouard Borges MD
--- NOTE | 2017-02-11 16:54 | General Surgery Consult Note ---
<Prince GeorgeGlenna Tamara - Last Filed: 02/11/17 17:01> Date of Encounter: 02/11/17 Time of Encounter: 16:30 Assessment and Plan (1) Acute blood loss anemia Current Visit: Yes Status: Acute Will plan to continue to support with PRBC and hydration Plan to start bowel prep with Miralax and Gatorade 02/12/17 if medically stable Clear liquids starting 02/12/17 Likely plan for EGD/Colonoscopy on 02/13/17 with general surgery History of Present Illness Consult date: 02/11/17 Requesting physician: Mart Conti History of present illness: Ms. Lindsey is a 76 year old female who presented to the hospital with complaints of dark tarry stools and progressive weakness for the past 3 weeks. She states that she has had at least 1-2 loose, dark colored stools per day for the past 3 weeks. Admits to generalized abdominal discomfort. Admits to nausea but denies any vomiting. Denies any fevers or chills. Admits to shortness of breath, chest pains, dizziness and progressive weakness. Denies any syncopal episodes. Denies any weight loss. She has never had upper or lower endoscopy evaluation. Her Hgb was 4.7 on initial presentation and she is feeling much better after receiving her 4th unit of PRBC. We have been asked to see and evaluate her for endoscopic evaluation. Past Med Surg Social Fam HX - Past Medical History Source: patient, old records reviewed Medical history: CVA, diabetes, hyperlipidemia, hypertension, myocardial infarction Psychiatric history: anxiety, depression - Past Surgical History Surgical History: non-contributory - Social History Smoking Status: Current every day smoker (Half pack per day) Smokeless Tobacco Status: No Alcohol use: occasionally Drug use: none Current living situation: Home - Independent Activity Level: Independent ambulation Medications and Allergies Albuterol Sulfate [Ventolin Hfa] 2 puff IH Q4H PRN 02/11/17 [History] Carvedilol [Coreg] 25 mg PO DAILY 02/11/17 [History] Cholecalciferol (D-3) [Vitamin D] 1,000 unit PO DAILY 02/11/17 [History] Gabapentin [Neurontin] 300 mg PO BID 02/11/17 [History] Glimepiride [Amaryl] 4 mg PO DAILY 02/11/17 [History] Ibuprofen [Motrin] 600 mg PO BID PRN 02/11/17 [History] Levothyroxine [Synthroid] 25 mcg PO 0630 02/11/17 [History] Lisinopril [Zestril] 20 mg PO DAILY 02/11/17 [History] Potassium Chloride [Klor-Con M15] 15 meq PO DAILY 02/11/17 [History] Rosuvastatin [Crestor] 40 mg PO HS 02/11/17 [History] metFORMIN [Glucophage] 1,000 mg PO BIDWM 02/11/17 [History] Allergies No Known Allergies Allergy (Verified 02/10/17 13:33) Review of Systems All systems PM: reviewed and no additional remarkable complaints except as stated (in the HPI) All systems PM: A 10-system review of systems was performed and is negative for pertinent findings except as documented above in the HPI. General Surgery Exam Initial Vital Signs Temp Pulse Resp BP Pulse Ox 98.2 F 84 16 126/56 97 02/10/17 13:33 02/10/17 13:33 02/10/17 13:33 02/10/17 13:33 02/10/17 13:33 - General physical appearance well developed, well nourished, no distress - Eyes normal ocular movement - ENT normal mucosa, atraumatic, normocephalic - Neck trachea midline - Respiratory normal respiratory effort, clear to auscultation - Cardiovascular Cardiovascular exam: Present: RRR - Abdomen Abdomen general surgery: Present: bowel sounds present, soft, non tender - Integumentary Integumentary general surgery: Present: warm and dry - Neurologic Present: CN 2-12 grossly intact - Psychiatric Psychiatric general surgery: Present: appropriate, oriented to person, oriented to place, oriented to time, speech is normal, memory intact Exam Initial Vital Signs Temp Pulse Resp BP Pulse Ox 98.2 F 84 16 126/56 97 02/10/17 13:33 02/10/17 13:33 02/10/17 13:33 02/10/17 13:33 02/10/17 13:33 Results - Labs 02/11/17 06:01 02/11/17 06:01 Abnormal lab results RBC 3.40 M/mcL (3.82-4.97) L 02/11/17 06:01 Hgb 7.5 g/dL (11.5-15.4) L D 02/11/17 06:01 Hct 25.1 % (35.3-44.9) L 02/11/17 06:01 MCV 73.8 fL (83.0-100.0) L D 02/11/17 06:01 MCH 22.1 pg (28.0-33.3) L 02/11/17 06:01 MCHC 29.9 g/dL (31.6-35.5) L 02/11/17 06:01 RDW 26.3 % (11.5-14.5) H 02/11/17 06:01 MPV 8.6 fL (9.4-12.4) L 02/11/17 06:01 Nucleated RBCs/100 WBC 0.5 /100 WBC (0) H 02/11/17 06:01 Polychromasia 1+ (Not Present) A 02/10/17 15:39 Hypochromasia Present (Not Present) A 02/11/17 06:01 Poikilocytosis 1+ (Not Present) A 02/10/17 15:39 Anisocytosis 2+ (Not Present) A 02/11/17 06:01 Microcytosis Present (Not Present) A 02/11/17 06:01 Chloride 112 mEq/L (98-109) H 02/11/17 06:01 Glucose 61 mg/dL (70-99) L 02/11/17 06:01 Calcium 8.1 mg/dL (8.6-10.8) L 02/11/17 06:01 % Saturation 13 % (15-50) L 02/11/17 06:01 B-Natriuretic Peptide 169 pg/mL (0-100) H 02/10/17 15:39 Serum Total Protein 5.3 g/dL (6.0-8.3) L 02/11/17 06:01 Albumin 3.0 g/dL (3.5-5.0) L 02/11/17 06:01 Globulin 2.3 g/dL (2.4-3.5) L 02/11/17 06:01 Diabetes panel 02/11/17 Range/Units 06:01 Sodium 137 (136-145) mEq/L Potassium 3.9 (3.5-4.5) mEq/L Chloride 112 H (98-109) mEq/L Carbon Dioxide 19 (19-29) mEq/L BUN 10 (7-20) mg/dL Creatinine 0.80 (0.57-1.11) mg/dL Glucose 61 L (70-99) mg/dL Calcium 8.1 L (8.6-10.8) mg/dL AST 18 (5-34) Units/L ALT 11 (0-55) Units/L Alkaline Phosphatase 45 (38-126) Units/L Albumin 3.0 L (3.5-5.0) g/dL Calcium panel 02/11/17 Range/Units 06:01 Calcium 8.1 L (8.6-10.8) mg/dL Albumin 3.0 L (3.5-5.0) g/dL Pituitary panel 02/11/17 Range/Units 06:01 Sodium 137 (136-145) mEq/L Potassium 3.9 (3.5-4.5) mEq/L Chloride 112 H (98-109) mEq/L Carbon Dioxide 19 (19-29) mEq/L BUN 10 (7-20) mg/dL Creatinine 0.80 (0.57-1.11) mg/dL Glucose 61 L (70-99) mg/dL Calcium 8.1 L (8.6-10.8) mg/dL Adrenal panel 02/11/17 Range/Units 06:01 Sodium 137 (136-145) mEq/L Potassium 3.9 (3.5-4.5) mEq/L Chloride 112 H (98-109) mEq/L Carbon Dioxide 19 (19-29) mEq/L BUN 10 (7-20) mg/dL Creatinine 0.80 (0.57-1.11) mg/dL Glucose 61 L (70-99) mg/dL Calcium 8.1 L (8.6-10.8) mg/dL Total Bilirubin 0.9 D (0.2-1.2) mg/dL AST 18 (5-34) Units/L ALT 11 (0-55) Units/L Alkaline Phosphatase 45 (38-126) Units/L Albumin 3.0 L (3.5-5.0) g/dL All other labs normal. - Imaging Additional studies: Consult Discharge Plan - Plan Referrals: [facility]ies[facility], [facility] [Primary Care Provider] - 02/17/17 1:15 pm - Attending Attestation I examined this patient and my medical decision-making was reviewed with the BOAT ASSEMBLER/PA/Advanced Practice Nurse/Resident Physician. I agree with the documented findings, disposition and treatment plan as described except to the extent set forth below. <Zac Puga - Last Filed: 02/11/17 20:32> Date of Encounter: 02/11/17 Review of Systems All systems PM: A 10-system review of systems was performed and is negative for pertinent findings except as documented above in the HPI. General Surgery Exam Initial Vital Signs Temp Pulse Resp BP Pulse Ox 98.2 F 84 16 126/56 97 02/10/17 13:33 02/10/17 13:33 02/10/17 13:33 02/10/17 13:33 02/10/17 13:33 Exam Initial Vital Signs Temp Pulse Resp BP Pulse Ox 98.2 F 84 16 126/56 97 02/10/17 13:33 02/10/17 13:33 02/10/17 13:33 02/10/17 13:33 02/10/17 13:33 Results - Labs 02/11/17 06:01 02/11/17 06:01 Abnormal lab results RBC 3.40 M/mcL (3.82-4.97) L 02/11/17 06:01 Hgb 7.5 g/dL (11.5-15.4) L D 02/11/17 06:01 Hct 25.1 % (35.3-44.9) L 02/11/17 06:01 MCV 73.8 fL (83.0-100.0) L D 02/11/17 06:01 MCH 22.1 pg (28.0-33.3) L 02/11/17 06:01 MCHC 29.9 g/dL (31.6-35.5) L 02/11/17 06:01 RDW 26.3 % (11.5-14.5) H 02/11/17 06:01 MPV 8.6 fL (9.4-12.4) L 02/11/17 06:01 Nucleated RBCs/100 WBC 0.5 /100 WBC (0) H 02/11/17 06:01 Polychromasia 1+ (Not Present) A 02/10/17 15:39 Hypochromasia Present (Not Present) A 02/11/17 06:01 Poikilocytosis 1+ (Not Present) A 02/10/17 15:39 Anisocytosis 2+ (Not Present) A 02/11/17 06:01 Microcytosis Present (Not Present) A 02/11/17 06:01 Chloride 112 mEq/L (98-109) H 02/11/17 06:01 Glucose 61 mg/dL (70-99) L 02/11/17 06:01 Calcium 8.1 mg/dL (8.6-10.8) L 02/11/17 06:01 % Saturation 13 % (15-50) L 02/11/17 06:01 B-Natriuretic Peptide 169 pg/mL (0-100) H 02/10/17 15:39 Serum Total Protein 5.3 g/dL (6.0-8.3) L 02/11/17 06:01 Albumin 3.0 g/dL (3.5-5.0) L 02/11/17 06:01 Globulin 2.3 g/dL (2.4-3.5) L 02/11/17 06:01 Diabetes panel 02/11/17 Range/Units 06:01 Sodium 137 (136-145) mEq/L Potassium 3.9 (3.5-4.5) mEq/L Chloride 112 H (98-109) mEq/L Carbon Dioxide 19 (19-29) mEq/L BUN 10 (7-20) mg/dL Creatinine 0.80 (0.57-1.11) mg/dL Glucose 61 L (70-99) mg/dL Calcium 8.1 L (8.6-10.8) mg/dL AST 18 (5-34) Units/L ALT 11 (0-55) Units/L Alkaline Phosphatase 45 (38-126) Units/L Albumin 3.0 L (3.5-5.0) g/dL Calcium panel 02/11/17 Range/Units 06:01 Calcium 8.1 L (8.6-10.8) mg/dL Albumin 3.0 L (3.5-5.0) g/dL Pituitary panel 02/11/17 Range/Units 06:01 Sodium 137 (136-145) mEq/L Potassium 3.9 (3.5-4.5) mEq/L Chloride 112 H (98-109) mEq/L Carbon Dioxide 19 (19-29) mEq/L BUN 10 (7-20) mg/dL Creatinine 0.80 (0.57-1.11) mg/dL Glucose 61 L (70-99) mg/dL Calcium 8.1 L (8.6-10.8) mg/dL Adrenal panel 02/11/17 Range/Units 06:01 Sodium 137 (136-145) mEq/L Potassium 3.9 (3.5-4.5) mEq/L Chloride 112 H (98-109) mEq/L Carbon Dioxide 19 (19-29) mEq/L BUN 10 (7-20) mg/dL Creatinine 0.80 (0.57-1.11) mg/dL Glucose 61 L (70-99) mg/dL Calcium 8.1 L (8.6-10.8) mg/dL Total Bilirubin 0.9 D (0.2-1.2) mg/dL AST 18 (5-34) Units/L ALT 11 (0-55) Units/L Alkaline Phosphatase 45 (38-126) Units/L Albumin 3.0 L (3.5-5.0) g/dL All other labs normal. - Attending Attestation The patient is seen in evaluated. She is currently undergoing voiding resuscitation and transfusion. At this point I do not think that she would tolerate a colonoscopy bowel prep. I would like to proceed with a colonoscopy and EGD within the patient is clinically stable. She is not actively vomiting blood or have signs of ongoing gastrointestinal hemorrhage. We will plan convalescent colonoscopy and EGD to evaluate her gastrointestinal tract for signs of blood loss Zac Puga MD FACS
[2017-02-11] MEDS: Acetaminophen 325 MG TABLET PO PRN (16:58)
[2017-02-11] MEDS ORDERED: hydrOXYzine pamoate 25 MG CAPSULE PO PRN (18:35)
[2017-02-11] MEDS ORDERED: Ipratropium/Albuterol Neb 3 ML IH PRN (18:37)
[2017-02-11] MEDS: Lisinopril 20 MG TABLET PO SCH (18:56)
[2017-02-11] MEDS: Gabapentin 300 MG CAPSULE PO SCH (23:18)
[2017-02-12 05:10] LABS: Basophils # 0.1 K/mcL (0.0-0.2); Basophils % 1.4 %; Eosinophils # 0.2 K/mcL (0.0-0.6); Eosinophils % 3.1 %; Hematocrit 29.4 % (35.3-44.9); Hemoglobin 8.9 g/dL (11.5-15.4); Immature Granulocytes % 0.5 % (0-4); Lymphocytes # 2.1 K/mcL (0.6-4.6); Lymphocytes % 31.8 %; Mean Corpuscular HGB Conc 30.3 g/dL (31.6-35.5); Mean Corpuscular Hemoglobin 23.1 pg (28.0-33.3); Mean Corpuscular Volume 76.2 fL (83.0-100.0); Mean Platelet Volume 8.7 fL (9.4-12.4); Monocytes % 15.1 %; Neutrophils # 3.1 K/mcL (1.6-8.9); Platelet Count 245 K/mcL (140-400); Red Blood Count 3.86 M/mcL (3.82-4.97); Red Cell Distribution Width 26.5 % (11.5-14.5); Segmented Neutrophils % 48.1 %
[2017-02-12 05:46] LABS: Anisocytosis 3+ (Not Present); Microcytosis Present (Not Present); Platelet Estimate Normal (Normal)
[2017-02-12 05:47] LABS: Poikilocytosis 1+ (Not Present); Schistocytes 1+ (Not Present)
[2017-02-12] MEDS: Levothyroxine 25 MCG TABLET PO SCH (06:12)
[2017-02-12] MEDS: Gabapentin 300 MG CAPSULE PO SCH ×2 (08:18→20:52)
[2017-02-12] MEDS: Lisinopril 20 MG TABLET PO SCH (08:18)
[2017-02-12] MEDS: Nicotine 14 MG PATCH.TD24 TD SCH (08:18)
[2017-02-12] MEDS ORDERED: Dextrose Gel 15 GM PO PRN ×2 (09:18)
[2017-02-12] MEDS ORDERED: *HR* Dextrose 50 % in Water (Syg) 50 ML SYRINGE IVP PRN (09:18)
[2017-02-12] MEDS ORDERED: D5% in Water 1,000 ML IVC PRN (09:18)
--- NOTE | 2017-02-12 10:32 | Internal Med Progress Note ---
<Boris Ramirez - Last Filed: 02/12/17 10:29> Date of Encounter: 02/12/17 Time of Encounter: 10:00 - Assessment and plan (1) DVT prophylaxis Current Visit: Yes Status: Acute (2) Shortness of breath Current Visit: Yes Status: Acute Assessment and plan: Checks x-ray revealed no acute changes. Patient denies having a cough this morning. Vital signs are currently stable. Continue to monitor. (3) Anemia Current Visit: Yes Status: Acute Assessment and plan: Patient reports having dark colored stools for the last month. She describes her stools as dark or black in color. Has attempted to see primary care physician, but either gets cancelled or is unable to obtain an appointment. Patient has received packed red blood cells. Vital signs are currently stable. Hemoglobin is rising. Granddaughter at bedside reports seeing bright red blood in the toilet after the patient uses the bathroom. Patient is scheduled for EGD and a colonoscopy tomorrow. Patient is currently on a clear liquid diet. Qualifiers: Anemia type: iron deficiency Iron deficiency anemia type: chronic blood loss Qualified Code(s): D50.0 - Iron deficiency anemia secondary to blood loss (chronic) - Subjective Interval history: Patient was seen and examined at bedside this morning. She states that her only complaint today is a feeling of fatigue. She does not have the same cough that she did yesterday morning. She denies having the same chest pain in her substernal area. She also denies having any pain in her legs. She denies shortness of breath, nausea, vomiting, fever, or palpitations. - Constitutional Vitals: Temp Pulse Resp BP Pulse Ox 98.3 F 83 17 139/65 97 02/12/17 07:53 02/12/17 09:33 02/12/17 07:53 02/12/17 09:33 02/12/17 07:53 General appearance: Present: A&O X 3, no acute distress, answers questions appropriately - Respiratory Respiratory exam: Present: CTAB. Absent: accessory muscle use, rales, rhonchi, wheezes - Cardiovascular Cardiovascular exam: Present: RRR, +S1, +S2. Absent: diastolic murmur, gallop, rubs, systolic murmur Internal Medicine: Result - Labs CBC & Chem 7: 02/12/17 04:38 02/11/17 06:01 Labs: Short CBC 02/12/17 Range/Units 04:38 WBC 6.5 (4.3-11.1) K/mcL Hgb 8.9 L (11.5-15.4) g/dL Hct 29.4 L (35.3-44.9) % Plt Count 245 (140-400) K/mcL Neutrophils # 3.1 (1.6-8.9) K/mcL Cardiac Enzymes 02/11/17 Range/Units 12:19 Troponin I 0.00 (0-0.03) ng/mL - ABG Interpretation ABG results: PT/INR, D-dimer PT 12.0 Seconds (9.4-12.1) 02/10/17 15:40 Consult Discharge Plan - Plan Referrals: Anneliese Melchor CNP [Primary Care Provider] - 02/17/17 1:15 pm <Omer Daly - Last Filed: 02/12/17 17:01> Date of Encounter: 02/12/17 - Assessment and plan (1) Anemia Current Visit: Yes Status: Acute Qualifiers: Anemia type: iron deficiency Iron deficiency anemia type: chronic blood loss Qualified Code(s): D50.0 - Iron deficiency anemia secondary to blood loss (chronic) (2) Acute upper gastrointestinal hemorrhage Current Visit: Yes Status: Suspected (3) Shortness of breath Current Visit: Yes Status: Acute (4) Hypertension Current Visit: Yes Status: Chronic Qualifiers: Hypertension type: essential hypertension Qualified Code(s): I10 - Essential (primary) hypertension (5) Tobacco abuse Current Visit: Yes Status: Acute - Constitutional Vitals: Temp Pulse Resp BP Pulse Ox 98.5 F 74 20 166/60 94 02/12/17 16:47 02/12/17 16:47 02/12/17 16:47 02/12/17 16:47 02/12/17 16:47 Internal Medicine: Result - Labs CBC & Chem 7: 02/12/17 04:38 02/11/17 06:01 Labs: Short CBC 02/12/17 Range/Units 04:38 WBC 6.5 (4.3-11.1) K/mcL Hgb 8.9 L (11.5-15.4) g/dL Hct 29.4 L (35.3-44.9) % Plt Count 245 (140-400) K/mcL Neutrophils # 3.1 (1.6-8.9) K/mcL - ABG Interpretation ABG results: PT/INR, D-dimer PT 12.0 Seconds (9.4-12.1) 02/10/17 15:40 - Attending Attestation I examined this patient and my medical decision-making was reviewed with the Resident Physician on 02/12/17. I agree with the documented findings, disposition and treatment plan as described except to the extent set forth below. Ms Lindsey is currently admitted for anemia due to presumed chronic blood loss. She remains moderate to high risk due to potential for worsening respiratory and GI status. Ms. Lindsey is doing OK. She continues to want to smoke. No fever or chills. No abd pain. Exam Alert. Comfortable Heart reg Lungs clear Abd soft and nontender No edema Mucus membranes moist I/P 1. Anemia due to chronic blood loss - to have EGD/colonoscopy on Wednesday 2. Probable GI bleed Further diagnoses and plan as above.
[2017-02-12] MEDS ORDERED: Polyethylene Glycol 3350 255 GM POWDER PO ONE (11:15)
[2017-02-12] MEDS: 0.9 % Sodium Chloride 1,000 ML IVC SCH (12:33)
[2017-02-12] MEDS: Insulin LISPRO 300 UNITS/3 ML VIAL SQ SCH ×2 (12:34→17:02)
[2017-02-12] MEDS: Acetaminophen 325 MG TABLET PO PRN ×2 (14:24→20:52)
--- NOTE | 2017-02-12 15:31 | General Surgery Progress Note ---
<Glenna Patel Tamara - Last Filed: 02/12/17 15:29> Date of Encounter: 02/12/17 Time of Encounter: 14:00 - Assessment and Plan (1) Acute blood loss anemia Current Visit: Yes Status: Acute Plan to start bowel prep with Miralax and Gatorade bowel prep today and continue for the next 48 hours (give 1/2 today and 1/2 on 02/13/17) Clear liquids starting NPO after midnight Wednesday 0001 IV fluids- 75ml/hour Likely plan for EGD/Colonoscopy in the next [address] Rosenthal Monitor Hgb/Hct Subjective Patient reports: feels better (mildly), voiding w/o difficulty, flatus, no bowel movement, afebrile, other (fatigued, headache) Objective Vital Signs - Last 8 Hours Temp Pulse Resp BP Pulse Ox 02/12/17 12:26 99.2 F 72 15 165/75 96 02/12/17 09:33 83 139/65 02/12/17 07:53 98.3 F 85 17 191/109 97 Intake and Output 02/11/17 02/12/17 02/12/17 23:59 07:59 15:59 Intake Total 1350 / 1350 2049 Output Total 0 / 0 Balance 1350 / 1350 2049 Intake: IV Fluids 1000 / 1000 1000 / 1000 0.9 % Sodium Chloride 1, 1000 / 1000 1000 / 1000 000 ML @ 75 mls/hr IVC . [id number] [facility] Rx#: [id number] Oral 0 / 0 1050 / 1050 Blood Product 350 / 350 Rbcs Leuko Poor As-1 350 / 350 Unit [id number] Output: Urine 0 / 0 Other: Meal Lunch # Voids 2 Weight 70 kg Blood Glucose* 165 Patient Weight 02/12/17 23:59 Weight 70 kg - General physical appearance well developed, well nourished, no distress - Eyes normal ocular movement, pale - ENT normal mucosa, atraumatic, normocephalic - Neck Neck exam: trachea midline - Respiratory normal respiratory effort, clear to auscultation - Cardiovascular Cardiovascular exam: Present: RRR - Abdomen Abdomen: Present: bowel sounds present, soft, non tender - Neurologic CN 2-12 grossly intact - Psychiatric oriented to time, oriented to person, oriented to place, speech is normal, memory intact - Labs 02/12/17 04:38 02/11/17 06:01 Consult Discharge Plan - Plan Referrals: Anneliese Melchor, MERCHANDISE SUPERVISOR [Primary Care Provider] - 02/17/17 1:15 pm - Attending Attestation I examined this patient and my medical decision-making was reviewed with the MARINE MECHANIC/PA/Advanced Practice Nurse/Resident Physician. I agree with the documented findings, disposition and treatment plan as described except to the extent set forth below. <Eun Rosenthal - Last Filed: 02/13/17 13:27> Date of Encounter: 02/12/17 - Assessment and Plan (1) Anemia Current Visit: Yes Status: Acute due to patients fatigue will plan a two day bowel prep clears, npo midnight wednesday night trend Hb will plan EGD/colonoscopy, risks and benefits discussed and she wishes to proceed Qualifiers: Anemia type: iron deficiency Iron deficiency anemia type: chronic blood loss Qualified Code(s): D50.0 - Iron deficiency anemia secondary to blood loss (chronic) Objective Vital Signs - Last 8 Hours Temp Pulse Resp BP Pulse Ox 02/13/17 10:59 98.0 F 78 17 163/79 94 02/13/17 06:45 98.6 F 84 16 175/74 93 Intake and Output 02/12/17 02/13/17 02/13/17 23:59 07:59 15:59 Intake Total 1000 / 1000 Output Total 800 / 800 Balance -800 / -800 1000 / 1000 Intake: IV Fluids 1000 / 1000 0.9 % Sodium Chloride 1, 1000 / 1000 000 ML @ 75 mls/hr IVC . [id number] [facility] Rx#: [id number] Output: Urine 800 / 800 Other: # Voids 3 Weight 68.4 kg Blood Glucose* 118 144 153 Patient Weight 02/13/17 23:59 Weight 68.4 kg - General physical appearance well developed, well nourished, no distress - Eyes PERRL, normal ocular movement, pale - ENT normal mucosa, normocephalic - Neck Neck exam: trachea midline - Respiratory normal expansion, clear to auscultation - Cardiovascular Cardiovascular exam: Present: RRR - Abdomen Abdomen: Present: bowel sounds present, soft, non tender - Integumentary no rash, no growths - Neurologic CN 2-12 grossly intact - Musculoskeletal normal posture - Psychiatric oriented to time, oriented to person, memory intact - Labs 02/13/17 06:22 02/13/17 06:22 Diabetes panel 02/13/17 Range/Units 06:22 Sodium 141 (136-145) mEq/L Potassium 3.8 (3.5-4.5) mEq/L Chloride 114 H (98-109) mEq/L Carbon Dioxide 19 (19-29) mEq/L BUN 8 (7-20) mg/dL Creatinine 0.74 (0.57-1.11) mg/dL Glucose 108 H (70-99) mg/dL Calcium 7.9 L (8.6-10.8) mg/dL Calcium panel 02/13/17 Range/Units 06:22 Calcium 7.9 L (8.6-10.8) mg/dL Pituitary panel 02/13/17 Range/Units 06:22 Sodium 141 (136-145) mEq/L Potassium 3.8 (3.5-4.5) mEq/L Chloride 114 H (98-109) mEq/L Carbon Dioxide 19 (19-29) mEq/L BUN 8 (7-20) mg/dL Creatinine 0.74 (0.57-1.11) mg/dL Glucose 108 H (70-99) mg/dL Calcium 7.9 L (8.6-10.8) mg/dL Adrenal panel 02/13/17 Range/Units 06:22 Sodium 141 (136-145) mEq/L Potassium 3.8 (3.5-4.5) mEq/L Chloride 114 H (98-109) mEq/L Carbon Dioxide 19 (19-29) mEq/L BUN 8 (7-20) mg/dL Creatinine 0.74 (0.57-1.11) mg/dL Glucose 108 H (70-99) mg/dL Calcium 7.9 L (8.6-10.8) mg/dL - Attending Attestation I examined this patient and my medical decision-making was reviewed with the MARINE MECHANIC/PA/Advanced Practice Nurse/Resident Physician. I agree with the documented findings, disposition and treatment plan as described except to the extent set forth below.
[2017-02-13] MEDS: Insulin LISPRO 300 UNITS/3 ML VIAL SQ SCH ×4 (01:35→17:55)
[2017-02-13] MEDS: 0.9 % Sodium Chloride 1,000 ML IVC SCH ×2 (02:33→13:58)
[2017-02-13 06:53] LABS: Basophils # 0.1 K/mcL (0.0-0.2); Basophils % 1.3 %; Eosinophils # 0.2 K/mcL (0.0-0.6); Eosinophils % 2.9 %; Hematocrit 32.7 % (35.3-44.9); Hemoglobin 9.9 g/dL (11.5-15.4); Immature Granulocytes % 0.3 % (0-4); Immature Platelets 1.9 % (1.1-6.1); Lymphocytes # 1.7 K/mcL (0.6-4.6); Lymphocytes % 22.1 %; Mean Corpuscular HGB Conc 30.3 g/dL (31.6-35.5); Mean Corpuscular Hemoglobin 23.6 pg (28.0-33.3); Mean Platelet Volume 9.2 fL (9.4-12.4); Monocytes # 0.8 K/mcL (0.0-1.3); Monocytes % 10.6 %; Neutrophils # 4.8 K/mcL (1.6-8.9); Platelet Count 285 K/mcL (140-400); Red Blood Count 4.19 M/mcL (3.82-4.97); Red Cell Distribution Width 27.1 % (11.5-14.5); Segmented Neutrophils % 62.8 %
[2017-02-13] MEDS: Levothyroxine 25 MCG TABLET PO SCH (07:06)
[2017-02-13 07:07] LABS: BUN/Creatinine Ratio 11 (6-26); Blood Urea Nitrogen 8 mg/dL (7-20); Calcium 7.9 mg/dL (8.6-10.8); Carbon Dioxide 19 mEq/L (19-29); Chloride 114 mEq/L (98-109); Glucose 108 mg/dL (70-99); Osmolality,Calculated 291 (280-300); Potassium 3.8 mEq/L (3.5-4.5); Sodium 141 mEq/L (136-145); eGFR For African Americans > 60 (> 60); eGFR For Non-African Americans > 60 (> 60)
[2017-02-13 07:38] LABS: Anisocytosis 1+ (Not Present); Microcytosis Present (Not Present); Platelet Estimate Normal (Normal); Poikilocytosis 1+ (Not Present); Polychromasia 1+ (Not Present)
[2017-02-13 07:39] LABS: Hypochromasia Present (Not Present); Schistocytes 1+ (Not Present)
--- NOTE | 2017-02-13 07:41 | General Surgery Progress Note ---
<Alex Correa - Last Filed: 02/13/17 07:38> Date of Encounter: 02/13/17 Time of Encounter: 07:38 - Assessment and Plan (1) Acute blood loss anemia Current Visit: Yes Status: Acute Patient scheduled for upper and lower endoscopy tomorrow She has tolerated half of the bowel yesterday and will finish other today VSS Hgb stable at 9.8 and HCT 32.7 and is asymptomatic at this time May have clears today and will be NPO at midnight Continue IVF Recheck Hgb/Hct tomorrow before scope Subjective Narrative: Ms. Lindsey is sitting comfortably in bed with no complaints this morning. She states the lightheadness is gone upon ambulation and has mild chest discomfort when coughing. "I just want a cup of coffee if I have to drink all these liquids" Objective Vital Signs - Last 8 Hours Temp Pulse Resp BP Pulse Ox 02/13/17 06:45 98.6 F 84 16 175/74 93 02/13/17 04:53 98.3 F 79 18 172/82 93 02/13/17 00:29 98.3 F 75 15 172/81 91 Intake and Output 02/12/17 02/12/17 02/13/17 15:59 23:59 07:59 Intake Total 2049 1000 / 1000 Output Total 800 / 800 Balance 2049 -800 / -800 1000 / 1000 Intake: IV Fluids 1000 / 1000 1000 / 1000 0.9 % Sodium Chloride 1, 1000 / 1000 1000 / 1000 000 ML @ 75 mls/hr IVC . [id number] [facility] Rx#: [id number] Oral 1050 / 1050 Output: Urine 800 / 800 Other: Meal Lunch # Voids 2 3 Weight 68.4 kg Blood Glucose* 165 118 144 Patient Weight 02/13/17 23:59 Weight 68.4 kg - General physical appearance well developed, well nourished, no distress - Eyes normal ocular movement - Neck Neck exam: trachea midline - Respiratory normal respiratory effort, clear to auscultation - Cardiovascular Cardiovascular exam: Present: RRR, murmurs (STEPHANIE) - Abdomen Abdomen: Present: bowel sounds present, soft, non tender - Integumentary no rash - Neurologic CN 2-12 grossly intact, normal sensation - Psychiatric oriented to time, oriented to person, oriented to place, speech is normal, memory intact - Labs 07/08/17 06:22 02/13/17 06:22 Diabetes panel 02/13/17 Range/Units 06:22 Sodium 141 (136-145) mEq/L Potassium 3.8 (3.5-4.5) mEq/L Chloride 114 H (98-109) mEq/L Carbon Dioxide 19 (19-29) mEq/L BUN 8 (7-20) mg/dL Creatinine 0.74 (0.57-1.11) mg/dL Glucose 108 H (70-99) mg/dL Calcium 7.9 L (8.6-10.8) mg/dL Calcium panel 02/13/17 Range/Units 06:22 Calcium 7.9 L (8.6-10.8) mg/dL Pituitary panel 02/13/17 Range/Units 06:22 Sodium 141 (136-145) mEq/L Potassium 3.8 (3.5-4.5) mEq/L Chloride 114 H (98-109) mEq/L Carbon Dioxide 19 (19-29) mEq/L BUN 8 (7-20) mg/dL Creatinine 0.74 (0.57-1.11) mg/dL Glucose 108 H (70-99) mg/dL Calcium 7.9 L (8.6-10.8) mg/dL Adrenal panel 02/13/17 Range/Units 06:22 Sodium 141 (136-145) mEq/L Potassium 3.8 (3.5-4.5) mEq/L Chloride 114 H (98-109) mEq/L Carbon Dioxide 19 (19-29) mEq/L BUN 8 (7-20) mg/dL Creatinine 0.74 (0.57-1.11) mg/dL Glucose 108 H (70-99) mg/dL Calcium 7.9 L (8.6-10.8) mg/dL Consult Discharge Plan - Plan Referrals: [facility]eliese [facility]chor, [facility] [Primary Care Provider] - 02/17/17 1:15 pm <Eun Rosenthal - Last Filed: 02/13/17 13:28> Date of Encounter: 02/13/17 Time of Encounter: 11:10 - Assessment and Plan (1) Anemia Current Visit: Yes Status: Acute continue bowel prep clears, npo midnight plan EGD/colonoscopy tomorrow am Qualifiers: Anemia type: iron deficiency Iron deficiency anemia type: chronic blood loss Qualified Code(s): D50.0 - Iron deficiency anemia secondary to blood loss (chronic) Subjective Patient reports: no new complaints Objective Vital Signs - Last 8 Hours Temp Pulse Resp BP Pulse Ox 02/13/17 10:59 98.0 F 78 17 163/79 94 02/13/17 06:45 98.6 F 84 16 175/74 93 Intake and Output 02/12/17 02/13/17 02/13/17 23:59 07:59 15:59 Intake Total 1000 / 1000 Output Total 800 / 800 Balance -800 / -800 1000 / 1000 Intake: IV Fluids 1000 / 1000 0.9 % Sodium Chloride 1, 1000 / 1000 000 ML @ 75 mls/hr IVC . [id number] [facility] Rx#: [id number] Output: Urine 800 / 800 Other: # Voids 3 Weight 68.4 kg Blood Glucose* 118 144 153 Patient Weight 02/13/17 23:59 Weight 68.4 kg - General physical appearance well developed, well nourished, no distress - Eyes PERRL, normal ocular movement, pale - ENT normal mucosa, normocephalic - Neck Neck exam: trachea midline - Respiratory normal expansion, clear to auscultation - Cardiovascular Cardiovascular exam: Present: RRR - Abdomen Abdomen: Present: bowel sounds present, soft, non tender - Integumentary no rash, no growths - Neurologic CN 2-12 grossly intact - Musculoskeletal normal posture - Psychiatric oriented to time, oriented to person, oriented to place, speech is normal, memory intact - Labs 02/13/17 06:22 02/13/17 06:22 Vital Signs Temp Pulse Resp BP Pulse Ox 02/13/17 10:59 98.0 F 78 17 163/79 94 02/13/17 06:45 98.6 F 84 16 175/74 93 02/13/17 04:53 98.3 F 79 18 172/82 93 02/13/17 00:29 98.3 F 75 15 172/81 91 02/12/17 20:18 98.3 F 77 16 166/78 94 02/12/17 16:47 98.5 F 74 20 166/60 94 Intake and Output 02/12/17 02/13/17 02/13/17 23:59 07:59 15:59 Intake Total 1000 / 1000 Output Total 800 / 800 Balance -800 / -800 1000 / 1000 Intake: IV Fluids 1000 / 1000 0.9 % Sodium Chloride 1, 1000 / 1000 000 ML @ 75 mls/hr IVC . [id number] [facility] Rx#: [id number] Output: Urine 800 / 800 Other: # Voids 3 Weight 68.4 kg Blood Glucose* 118 144 153 Patient Weight 02/13/17 23:59 Weight 68.4 kg - Attending Attestation I examined this patient and my medical decision-making was reviewed with the POCKET MACHINE OPERATOR/PA/Advanced Practice Nurse/Resident Physician. I agree with the documented findings, disposition and treatment plan as described except to the extent set forth below.
[2017-02-13] MEDS: Lisinopril 20 MG TABLET PO SCH (08:53)
[2017-02-13] MEDS: Nicotine 14 MG PATCH.TD24 TD SCH (08:53)
[2017-02-13] MEDS: Gabapentin 300 MG CAPSULE PO SCH ×2 (08:53→21:14)
--- NOTE | 2017-02-13 09:50 | Internal Med Progress Note ---
<Boris Ramirez - Last Filed: 02/13/17 09:48> Date of Encounter: 02/13/17 Time of Encounter: 09:20 - Assessment and plan (1) DVT prophylaxis Current Visit: Yes Status: Acute (2) Shortness of breath Current Visit: Yes Status: Acute Assessment and plan: Checks x-ray revealed no acute changes. Patient denies having a cough this morning. Vital signs are currently stable. Continue to monitor. (3) Anemia Current Visit: Yes Status: Acute Assessment and plan: Patient reports having dark colored stools for the last month. She describes her stools as dark or black in color. Has attempted to see primary care physician, but either gets cancelled or is unable to obtain an appointment. Patient has received packed red blood cells. Vital signs are currently stable. Hemoglobin is rising. Granddaughter at bedside reports seeing bright red blood in the toilet after the patient uses the bathroom. Patient is scheduled for EGD and a colonoscopy. Patient is currently on a clear liquid diet. Qualifiers: Anemia type: iron deficiency Iron deficiency anemia type: chronic blood loss Qualified Code(s): D50.0 - Iron deficiency anemia secondary to blood loss (chronic) - Subjective Interval history: Patient was seen and examined at bedside this morning. She states that her only complaint today was fatigue. She does not have the same cough or shortness of breath that she did on admission. She denies having any chest pain in her substernal area. She also denies having any pain in her legs. She denies shortness of breath, nausea, vomiting, fever, or palpitations. - Constitutional Vitals: Temp Pulse Resp BP Pulse Ox 98.6 F 84 16 175/74 93 02/13/17 06:45 02/13/17 06:45 02/13/17 06:45 02/13/17 06:45 02/13/17 06:45 General appearance: Present: A&O X 3, no acute distress, answers questions appropriately - Respiratory Respiratory exam: Present: CTAB. Absent: accessory muscle use, rales, rhonchi, wheezes - Cardiovascular Cardiovascular exam: Present: RRR, +S1, +S2. Absent: diastolic murmur, gallop, rubs, systolic murmur Internal Medicine: Result - Labs CBC & Chem 7: 02/13/17 06:22 02/13/17 06:22 Labs: Short CBC 02/13/17 Range/Units 06:22 WBC 7.7 (4.3-11.1) K/mcL Hgb 9.9 L (11.5-15.4) g/dL Hct 32.7 L (35.3-44.9) % Plt Count 285 (140-400) K/mcL Neutrophils # 4.8 (1.6-8.9) K/mcL BMP 02/13/17 06:22 Sodium 141 Potassium 3.8 Chloride 114 H Carbon Dioxide 19 BUN 8 Creatinine 0.74 Glucose 108 H Calcium 7.9 L - ABG Interpretation ABG results: PT/INR, D-dimer PT 12.0 Seconds (9.4-12.1) 02/10/17 15:40 Consult Discharge Plan - Plan Referrals: Anneliese Melchor CNP [Primary Care Provider] - 02/17/17 1:15 pm <Omer Daly - Last Filed: 02/13/17 15:00> Date of Encounter: 02/13/17 - Assessment and plan (1) Anemia Current Visit: Yes Status: Acute Qualifiers: Anemia type: iron deficiency Iron deficiency anemia type: chronic blood loss Qualified Code(s): D50.0 - Iron deficiency anemia secondary to blood loss (chronic) (2) Acute upper gastrointestinal hemorrhage Current Visit: Yes Status: Suspected (3) Shortness of breath Current Visit: Yes Status: Acute (4) Hypertension Current Visit: Yes Status: Chronic Qualifiers: Hypertension type: essential hypertension Qualified Code(s): I10 - Essential (primary) hypertension (5) Tobacco abuse Current Visit: Yes Status: Chronic - Constitutional Vitals: Temp Pulse Resp BP Pulse Ox 98.0 F 78 17 163/79 94 02/13/17 10:59 02/13/17 10:59 02/13/17 10:59 02/13/17 10:59 02/13/17 10:59 Internal Medicine: Result - Labs CBC & Chem 7: 02/13/17 06:22 02/13/17 06:22 Labs: Short CBC 02/13/17 Range/Units 06:22 WBC 7.7 (4.3-11.1) K/mcL Hgb 9.9 L (11.5-15.4) g/dL Hct 32.7 L (35.3-44.9) % Plt Count 285 (140-400) K/mcL Neutrophils # 4.8 (1.6-8.9) K/mcL BMP 02/13/17 06:22 Sodium 141 Potassium 3.8 Chloride 114 H Carbon Dioxide 19 BUN 8 Creatinine 0.74 Glucose 108 H Calcium 7.9 L - ABG Interpretation ABG results: PT/INR, D-dimer PT 12.0 Seconds (9.4-12.1) 02/10/17 15:40 - Attending Attestation I examined this patient and my medical decision-making was reviewed with the Resident Physician on 02/13/17. I agree with the documented findings, disposition and treatment plan as described except to the extent set forth below. Ms. Lindsey is currently admitted for severe anemia and presumed GI bleed. She is moderate to high risk due to potential for worsening hematologic and GI issues. Ms. Lindsey is feeling OK. She took half of the prep last night. She is to get the other half today and have endoscopy tomorrow. No pain. No dyspnea now. No fever or chills. Exam Alert. Comfortable Mucus membranes moist Heart reg Lungs clear Abd soft and nontender No edema I/P 1 Anemia 2. GI bleed Further diagnoses and plan as above.
[2017-02-13] MEDS ORDERED: Methyl Salicylate/Menthol 28 GM TUBE TP PRN (17:37)
[2017-02-13] MEDS: Acetaminophen 325 MG TABLET PO PRN (21:20)
[2017-02-14 03:52] LABS: Basophils # 0.1 K/mcL (0.0-0.2); Basophils % 0.9 %; Eosinophils # 0.1 K/mcL (0.0-0.6); Eosinophils % 1.7 %; Hematocrit 29.6 % (35.3-44.9); Hemoglobin 8.9 g/dL (11.5-15.4); Immature Granulocytes % 0.4 % (0-4); Lymphocytes # 1.7 K/mcL (0.6-4.6); Lymphocytes % 21.6 %; Mean Corpuscular HGB Conc 30.1 g/dL (31.6-35.5); Mean Corpuscular Hemoglobin 23.3 pg (28.0-33.3); Mean Corpuscular Volume 77.5 fL (83.0-100.0); Mean Platelet Volume 8.5 fL (9.4-12.4); Monocytes % 12.8 %; Neutrophils # 4.8 K/mcL (1.6-8.9); Platelet Count 232 K/mcL (140-400); Red Blood Count 3.82 M/mcL (3.82-4.97); Red Cell Distribution Width 27.1 % (11.5-14.5); Segmented Neutrophils % 62.6 %
[2017-02-14 04:13] LABS: BUN/Creatinine Ratio 9 (6-26); Blood Urea Nitrogen 6 mg/dL (7-20); Calcium 7.7 mg/dL (8.6-10.8); Carbon Dioxide 23 mEq/L (19-29); Chloride 115 mEq/L (98-109); Glucose 105 mg/dL (70-99); Osmolality,Calculated 294 (280-300); Potassium 2.8 mEq/L (3.5-4.5); Sodium 143 mEq/L (136-145); eGFR For African Americans > 60 (> 60); eGFR For Non-African Americans > 60 (> 60)
[2017-02-14 04:19] LABS: Platelet Estimate Normal (Normal)
[2017-02-14 04:21] LABS: Anisocytosis 2+ (Not Present); Poikilocytosis 1+ (Not Present); Polychromasia 1+ (Not Present); Schistocytes 1+ (Not Present)
[2017-02-14] MEDS: 0.9 % Sodium Chloride 1,000 ML IVC SCH (05:06)
[2017-02-14] MEDS: Acetaminophen 325 MG TABLET PO PRN (05:17)
[2017-02-14] MEDS: Levothyroxine 25 MCG TABLET PO SCH (05:18)
[2017-02-14] MEDS: Insulin LISPRO 300 UNITS/3 ML VIAL SQ SCH ×3 (07:22→11:17)
[2017-02-14] MEDS ORDERED: Potassium Chloride 40 MEQ, Lidocaine 1% 2 ML in D5% in Water 500 ML IVPB ONE (08:09)
[2017-02-14 08:12] LABS: Magnesium 1.5 mg/dL (1.6-2.6)
[2017-02-14 09:55] VITALS: BP 165/76
--- NOTE | 2017-02-14 10:20 | Anesthesia Evaluation PreOp ---
Date of Encounter: 02/14/17 Time of Encounter: 10:20 - Past History Planned Operation: Double Endo Cardiac History: [place], HTN, Hyperlipidemia, Other (Anemia) Pulmonary History: Smoker, COPD BEADING MACHINE OPERATOR History: CVA Other Medical History: Thyroid Anesthesia History: No Prior Anesthetic Complications : No Alcohol Use: occasionally Drug use: none Medications and Allergies Albuterol Sulfate [Ventolin Hfa] 2 puff IH Q4H PRN 02/11/17 [History] Carvedilol [Coreg] 25 mg PO DAILY 02/11/17 [History] Cholecalciferol (D-3) [Vitamin D] 1,000 unit PO DAILY 02/11/17 [History] Gabapentin [Neurontin] 300 mg PO BID 02/11/17 [History] Glimepiride [Amaryl] 4 mg PO DAILY 02/11/17 [History] Ibuprofen [Motrin] 600 mg PO BID PRN 02/11/17 [History] Levothyroxine [Synthroid] 25 mcg PO 0630 02/11/17 [History] Lisinopril [Zestril] 20 mg PO DAILY 02/11/17 [History] Potassium Chloride [Klor-Con M15] 15 meq PO DAILY 02/11/17 [History] Rosuvastatin [Crestor] 40 mg PO HS 02/11/17 [History] metFORMIN [Glucophage] 1,000 mg PO BIDWM 02/11/17 [History] Allergies No Known Allergies Allergy (Verified 02/10/17 13:33) - Meds/Allergy Pre-op Review Medications Reviewed: Yes Allergies Reviewed: Yes Beta Blockers on Current Med List: Yes (on Coreg...held due to severe anemia) Anesthesia Results - Labs 02/14/17 03:30 02/14/17 03:30 - Imaging EKG: report reviewed (SR) Additional studies: LVEF 60% Anesthesia Exam O2 Sat Weight 69.3 kg O2 Sat by Pulse Oximetry 95 O2 Sat by Pulse Oximetry 95 O2 Sat by Pulse Oximetry 95 O2 Sat by Pulse Oximetry 92 O2 Sat by Pulse Oximetry 92 O2 Sat by Pulse Oximetry 91 O2 Sat by Pulse Oximetry 91 O2 Sat by Pulse Oximetry 95 O2 Sat by Pulse Oximetry 94 Vital Signs Temp Pulse Resp BP Pulse Ox 98.2 F 84 16 126/56 97 02/10/17 13:33 02/10/17 13:33 02/10/17 13:33 02/10/17 13:33 02/10/17 13:33 Height: 5'3 Weight: 152 lbs NPO (# of Hours): MN Pain Scale: 0 - HEENT Pupil (Motor): Pupils equal, EOMI Mallampati: III Teeth: Normal Oral Opening: Less than or equal to 3 - BEADING MACHINE OPERATOR LOC: Oriented BEADING MACHINE OPERATOR Motor: Normal RUE, Normal LUE, Normal RLE, Normal LLE, Normal Face BEADING MACHINE OPERATOR Sensory: Normal: RUE, LUE, RLE, LLE, Face - Cardiac Rhythm: Regular Murmur: None JVD: No Carotid Bruit: No - Pulmonary Breath Sounds: bilateral Clear Respiratory Effort: Symmetrical Anesthesia Assess/Plan ASA Score: 3 (CAD HTN COPD Anemia CVA) Modified Silas Scale for Level of Consciousness: Cooperative, oriented, and tranquil Anesthetic Plan: MAC Monitoring Plan: Standard Monitors Recovery Plan: Other (Discussed MAC, agrees to proceed)
[2017-02-14] MEDS ORDERED: Tetracaine/Benzocaine/Butamben 200MG/SPRAY (100SPY/BOT) MM ONE (10:28)
[2017-02-14] MEDS ORDERED: Simethicone 40 MG/0.6 ML MLS IR ONE (10:28)
--- NOTE | 2017-02-14 11:30 | Anesthesia Evaluation Post Op ---
Date of Encounter: 02/14/17 Time of Encounter: 11:30 - Vital Signs Vital Signs: Vital Signs/O2 Sat/Glucose, Most Current Temp Pulse Resp BP Pulse Ox 02/14/17 11:20 97.8 F 79 18 165/76 95 02/14/17 10:09 97.8 F 79 18 165/76 95 02/14/17 10:03 97.8 F 79 18 165/76 95 02/14/17 09:54 97.8 F 79 18 165/76 95 02/14/17 08:01 98.4 F 88 16 155/71 92 - Lungs Lungs: Clear Ascult./Percussion - Airway Airway: Non-obstructed - Cardiovascular Regular Rate - Mental Status Mental Status: Alert & Oriented, Answers Appropriately - Pain Pain Scale: 0 - Nausea Vomiting Nausea Vomiting: Not Present - Hydration Hydration: NPO - Discharge PostOp Status: Transfer Patient to floor
[2017-02-14] MEDS: Lisinopril 20 MG TABLET PO SCH (12:18)
[2017-02-14] MEDS: Nicotine 14 MG PATCH.TD24 TD SCH (12:19)
[2017-02-14] MEDS: Gabapentin 300 MG CAPSULE PO SCH (12:20)
--- NOTE | 2017-02-14 13:46 | Discharge Summary ---
<Boris Ramirez - Last Filed: 02/14/17 14:58> Date of Encounter: 02/14/17 Time of Encounter: 10:30 - Discharge Diagnosis (1) Anemia Priority: Primary Status: Acute Comments: Patient presented to the hospital with low hemoglobin. On admission, patient's hemoglobin was 4.7. She was given several units of packed red blood cells, which caused her hemoglobin to rise. -Initially it was suspected that patient's anemia was due to blood loss and her GI tract. -Patient reported having dark-colored stools for the last month. -Hemoccult test performed in the ER was negative. -However granddaughter reported seeing blood in the toilet after the patient use the bathroom. -Colonoscopy was performed for unexplained iron deficiency anemia. -No bleeds were seen. -2 polyps were found in the colon, as well as multiple diverticula. -Hemoglobin is currently 8.9. Qualifiers: Anemia type: iron deficiency Iron deficiency anemia type: chronic blood loss Qualified Code(s): D50.0 - Iron deficiency anemia secondary to blood loss (chronic) (2) DVT prophylaxis Priority: Secondary Status: Acute - Discharge Medications Prescriptions: Nicotine Patch [Nicoderm] 21 mg TD DAILY #30 patch.td24 Omeprazole [PriLOSEC] 20 mg PO BIDAC #60 cap Home Medications: Albuterol Sulfate [Ventolin Hfa] 2 puff IH Q4H PRN 02/11/17 [History] Carvedilol [Coreg] 25 mg PO DAILY 02/11/17 [History] Cholecalciferol (D-3) [Vitamin D] 1,000 unit PO DAILY 02/11/17 [History] Gabapentin [Neurontin] 300 mg PO BID 02/11/17 [History] Glimepiride [Amaryl] 4 mg PO DAILY 02/11/17 [History] Ibuprofen [Motrin] 600 mg PO BID PRN 02/11/17 [History] Levothyroxine [Synthroid] 25 mcg PO 30 02/11/17 [History] Lisinopril [Zestril] 20 mg PO DAILY 02/11/17 [History] Potassium Chloride [Klor-Con M15] 15 meq PO DAILY 02/11/17 [History] Rosuvastatin [Crestor] 40 mg PO HS 02/11/17 [History] metFORMIN [Glucophage] 1,000 mg PO BIDWM 02/11/17 [History] Nicotine Patch [Nicoderm] 21 mg TD DAILY #30 patch.td24 02/14/17 [Rx] Omeprazole [PriLOSEC] 20 mg PO BIDAC #60 cap 02/14/17 [Rx] Allergies/Adverse Reactions: Allergies No Known Allergies Allergy (Verified 02/10/17 13:33) Date of admission: 02/10/17 16:57 Primary care physician: Anneliese Melchor CNP Consults: 02/10/17 18:56 Consult to Nutrition [CONS] Routine Comment: Consulting Provider: NUTRITION Reason for Dietary Consult: MST Score 02/11/17 14:45 Consult to Surgery [CONS] Routine Consulting Provider: [facility] Reason for Consult: Microcytic anemia Hgb 4.7 on admission. Hgb 7.5 after 3 units of pRBC. Pt reports melena & PRBPR. Concern of upper GI bleed and appreciate EGD for further evaluation. Currently Protonix IV BID. Case was discussed with Dr. Puga. Call Completed: Yes Discharging clinician: Boris Ramierz Anticipated date of discharge: 02/14/17 - Patient Status Disposition: Home, Self-Care Condition: Good Functional capacity at discharge: independent ambulation Overall status at discharge: patient is progressing back to baseline - Discharge Instructions Instructions: Omeprazole (By mouth), Anemia (GEN) Follow Up With: Anneliese Melchor CNP [Primary Care Provider] - 02/17/17 1:15 pm Additional Instructions: Continue taking omeprazole. Follow up with Primary care provider. - Diet and Activity Activity: increase activity as tolerated Diet: advance to your usual diet Hospital course: Ms. Lindsey is a 76 year old female who presented to the ED with complaints of shortness of breath. It was determined that her hemoglobin was low at 4.7. She was admitted for blood transfusion. She states that she has had several health problems for the last month, including pain in her legs and dark colored stools. She has attempted to schedule an appointment with her PCP, but she was unable to get an appointment. She denied seeing any blood in her stool. She had some shortness of breath on exertion, as well as leg pain that was exacerbated by walking long distances. Physical examination revealed that there was no rectal stool. Hemoccult test in the ED was negative. On admission , her temperature was 98.2, her pulse was 84, and her blood pressure was 126/ 56. Patient was hemodynamically stable. She was given 1 unit of packed red blood cells. 3 subsequent units were given during her stay in hospital. A chest x-ray was obtained, and no acute findings were present. Patient has a history of COPD and a history of smoking. During the course of her stay, her hemoglobin increased from 4.7-8.9. During her stay in the hospital, she did not report having any shortness of breath, chest pain, diarrhea, melena, or any visible blood in her stool. She did state that she had some pain in her legs first day of her stay in the hospital, a problem that she has had for the last month. Her leg pain is exacerbated by walking long distances. After her admission date she did not complain of leg pain. Her only other complaint during her stay was feeling of fatigue. Surgery was consulted after her admission to rule out the possibility of a GI bleed. Patient's potassium was low on the day of her procedure at 2.8. Patient was given a potassium supplement. Endoscopic evaluation was performed on 02/14/17. Upper endoscopy revealed a sliding hiatal hernia. An area of mild erythematous mucosa was found in the gastric antrum. No acute bleeds or ulcers were found. Colonoscopy was performed. Several diverticular pouches were found in the sigmoid colon. 2 polyps in the rectum, which were removed with snare. No active bleeding sites were found. Blood loss during the procedure was minimal. Patient's condition after the procedure is stable. Patient will be able to return home. She will be instructed to take omeprazole and follow up with her PCP. - Time Spent with Patient Total time spent providing and/or coordinating discharge services: Greater than 30 minutes - Constitutional Vitals: Temp Pulse Resp BP Pulse Ox 97.8 F 79 18 165/76 95 02/14/17 11:20 02/14/17 11:20 02/14/17 11:20 02/14/17 11:20 02/14/17 11:20 General appearance: Present: A&O X 3, no acute distress, answers questions appropriately - ENT ENT exam: Present: mucous membranes moist - Respiratory Respiratory exam: Present: CTAB. Absent: accessory muscle use, rales, rhonchi, wheezes - Cardiovascular Cardiovascular exam: Present: RRR, +S1, +S2. Absent: diastolic murmur, gallop, rubs, systolic murmur - GI/Abdominal GI/Abdominal exam: Present: normal bowel sounds, soft, no peritoneal signs. Absent: distended, tenderness - Psychiatric Psychiatric exam: Present: normal affect, normal mood <Omer Daly - Last Filed: 02/14/17 16:28> Date of Encounter: 02/14/17 - Discharge Diagnosis (1) Anemia Status: Acute Qualifiers: Anemia type: iron deficiency Iron deficiency anemia type: chronic blood loss Qualified Code(s): D50.0 - Iron deficiency anemia secondary to blood loss (chronic) (2) Diverticulosis large intestine w/o perforation or abscess w/o bleeding Priority: Primary Status: Chronic (3) Shortness of breath Priority: Secondary Status: Acute (4) Hypertension Priority: Secondary Status: Chronic Qualifiers: Hypertension type: essential hypertension Qualified Code(s): I10 - Essential (primary) hypertension (5) Tobacco abuse Priority: Secondary Status: Chronic Date of admission: 02/10/17 16:57 Primary care physician: Anneliese Melchor CNP Consults: 02/10/17 18:56 Consult to Nutrition [CONS] Routine Comment: Consulting Provider: NUTRITION Reason for Dietary Consult: MST Score 02/11/17 14:45 Consult to Surgery [CONS] Routine Consulting Provider: [facility] Reason for Consult: Microcytic anemia Hgb 4.7 on admission. Hgb 7.5 after 3 units of pRBC. Pt reports melena & PRBPR. Concern of upper GI bleed and appreciate EGD for further evaluation. Currently Protonix IV BID. Case was discussed with Dr. Puga. Call Completed: Yes Hospital course: Ms. Lindsey is a 76 year old female - Time Spent with Patient Total time spent providing and/or coordinating discharge services: 37min - Constitutional Vitals: Temp Pulse Resp BP Pulse Ox 97.8 F 79 18 165/76 95 02/14/17 11:20 02/14/17 11:20 02/14/17 11:20 02/14/17 11:20 02/14/17 11:20 - Attending Attestation I examined this patient and my medical decision-making was reviewed with the Resident Physician on 02/14/17. I agree with the documented findings, disposition and treatment plan as described except to the extent set forth below. Ms. Lindsey has been admitted for acute anemia with presumed GI bleed. She is s/p 4 units PRBCs with H/H stable near 9. She underwent endoscopy today and had diverticular disease as well as some erythema of stomach. 2 polyps removed. Currently she is afebrile and vitals are stable. She is felt ready for d/c home. Exam Alert. Comfortable Mucus membranes dry Heart reg No wheeze Abd soft No edema Plan D/C today Follow up with PCP Karla She requests help with tobacco cessation - nicotine patch script given
[2017-02-14] MEDS ORDERED: Lidocaine -MPF 2% 5 ML VIAL INFILT ONE (16:17)
[2017-02-14] MEDS ORDERED: *HR* Propofol 200 MG/20 ML VIAL IVP ONE (16:17)
--- NOTE | 2017-02-15 15:58 | Electrocardiograph Report ---
[place] [id number] Test Date: 2017-02-13 Pat Name: Lacy Lindsey Department: 112 Room: 2A Gender: F [employer] Sales Leader: RON : 1940 Requested By: Omer Daly Order Number: [id number] Reading MD: Luis Rain Measurements Intervals [place] Rate: 75 P: 52 IN: 183 QRS: 27 QRSD: 92 T: 37 QT: 398 QTc: 426 Interpretive Statements SINUS RHYTHM Electronically Signed On 02-15-2017 15:56:16 EDT by Luis Rain
== END 2017-02-14 16:18 | disposition home or self-care (01) ==
LOC: EMEROO 13:14 → 2ANU 13:14
PROVIDERS: ADMIT Internal Medicine; ATTEND Internal Medicine
PROC: ENDOEBX (2017-02-14 10:00)